=== PATIENT | female | born 1950 | race Caucasian/White ===

== ENCOUNTER 2018-01-16 10:00 | Observation (INO) | payer MEDICARE, OTHER ==
--- NOTE | 2018-01-16 10:07 | EDM.PDOC ---
ED HPI GENERAL MEDICAL PROBLEM - General Chief Complaint: Respiratory Problem Stated Complaint: TROUBLE BREATHING Time Seen by Provider: 01/16/18 10:06 Source of Information: Reports: Patient History Limitations: Reports: No Limitations - History of Present Illness INITIAL COMMENTS - FREE TEXT/NARRATIVE: HISTORY AND PHYSICAL: History of present illness: Patient is 67-year-old female who presents to the emergency room by EMS with complaints of shortness of breath. She states she was at work this morning and a coworker was cleaning and spraying some chemicals, which resulted in her becoming dyspneic. She is a 2 pack per day smoker and has occasionally become short of breath with exertion or certain exposures. Denies any fever, chills, chest pain, abdominal pain, nausea, vomiting, diarrhea or constipation. Review of systems: As per history of present illness and below otherwise all systems reviewed and negative. Past medical history: As per history of present illness and as reviewed below otherwise noncontributory. Surgical history: As per history of present illness and as reviewed below otherwise noncontributory. Social history: No reported history of drug or alcohol abuse. Family history: As per history of present illness and as reviewed below otherwise noncontributory. Physical exam: General: Well-developed and well-nourished 67-year-old female. Alert and oriented. Nontoxic appearing and in mild distress (labored breathing) HEENT: Atraumatic, normocephalic, pupils equal and reactive bilaterally, negative for conjunctival pallor or scleral icterus, mucous membranes moist, throat clear, neck supple, nontender, trachea midline. No drooling or trismus noted. No meningeal signs Lungs: Diminished throughout, breath sounds equal bilaterally, chest nontender. Labored breathing noted. Heart: S1S2, regular rate and rhythm without overt murmur Abdomen: Soft, nondistended, nontender. Negative for masses or hepatosplenomegaly. Negative for costovertebral tenderness. Pelvis: Stable nontender. Genitourinary: Deferred. Rectal: Deferred. Skin: Intact, warm, dry. No lesions or rashes noted. Extremities: Atraumatic, negative for cords or calf pain. Neurovascular unremarkable. Neuro: Awake, alert, oriented. Cranial nerves II through XII unremarkable. Cerebellum unremarkable. Motor and sensory unremarkable throughout. Exam nonfocal. Notes: Patient's sats 90% while on room air (does not have home oxygen). VSS otherwise. Patient says she feels improved after the DuoNeb. She does appear to have improved ease with respirations and better air exchange after the DuoNeb and Solu-Medrol. Her d-dimer is elevated and I will do a CTA of her chest. This was explained to the patient and she is agreeable. CT of the chest shows a single subsegmental left lower lobe PE. There is a moderate amount of pulmonary emphysema. I did offer her admission which she is hesitant. She is agreeable to staying overnight for observation. Dr Vega was consulted at this time. 1330: Dr Vega here to see patient. Patient will be admitted to Med/Surg Diagnostics: CBC, CMP, EKG, 2 view chest x-ray, ABG, D-Dimer Therapeutics: DuoNeb, Solu-Medrol Impression: Pulmonary Embolism Plan: Telemetry Observation Definitive disposition and diagnosis as appropriate pending reevaluation and review of above. - Related Data Allergies Allergy/AdvReac Type Severity Reaction Status Date / Time aloe vera Allergy Rash Verified 10/11/15 14:04 latex Allergy Rash Verified 10/11/15 14:04 Home Meds: Home Meds Potassium Chloride [Klor-Con] 10 mg PO BID 10/11/15 [History] Calc/D3/Mag/Zn/Alarm Security Or Surveillance Monitor/[place] [Calcium 600 MG Plus Vit D] 1 tab DAILY 01/16/18 [ History] Celecoxib [CeleBREX] 50 mg DAILY 01/16/18 [History] Past Medical History Other HEENT History: wears glasses Cardiovascular History: Reports: None Respiratory History: Reports: None Gastrointestinal History: Reports: None Genitourinary History: Reports: None HOSPITAL 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: Reports: None Musculoskeletal History: Reports: Arthritis, Fracture Other Musculoskeletal History: hx of fx left wrist Neurological History: Reports: None Psychiatric History: Reports: Depression Other Psychiatric History: in June Endocrine/Metabolic History: Reports: None Hematologic History: Reports: None Immunologic History: Reports: None Oncologic (Cancer) History: Reports: None Dermatologic History: Reports: Psoriasis Other Dermatologic History: left ankle - Past Surgical History GI Surgical History: Reports: Other (See Below) Female Surgical History: Reports: Other (See Below) Musculoskeletal Surgical History: Reports: Shoulder Surgery ED ROS GENERAL - Review of Systems Review Of Systems: ROS reveals no pertinent complaints other than HPI. ED EXAM, GENERAL - Physical Exam Exam: See Below (See dictation) Course - Vital Signs Last Recorded V/S: Last Vital Signs Temp 96.9 F 01/16/18 10:01 Pulse 93 01/16/18 10:01 Resp 28 H 01/16/18 10:01 BP 137/78 01/16/18 10:01 Pulse Ox 92 L 01/16/18 10:01 - Orders/Labs/Meds Orders: Active Orders 24 hr Category Date Time Status EKG Documentation Completion [RC] STAT Care 01/16/18 10:09 Active RT Aerosol Therapy [RC] ASDIRECTED Care 01/16/18 10:09 Active Ang Chest [CT] Stat Exams 01/16/18 11:15 Taken Sodium Chloride 0.9% [Saline Flush] Med 01/16/18 10:09 Active 10 ml FLUSH ASDIRECTED PRN Sodium Chloride 0.9% [Saline Flush] Med 01/16/18 10:09 Active 2.5 ml FLUSH ASDIRECTED PRN Saline Lock Insert [OM.PC] Stat Oth 01/16/18 10:09 Ordered Medication Orders Sodium Chloride (Saline Flush) 10 ml FLUSH ASDIRECTED PRN PRN Reason: Keep Vein Open Sodium Chloride (Saline Flush) 2.5 ml FLUSH ASDIRECTED PRN PRN Reason: Keep Vein Open Labs: Laboratory Tests 01/16/18 01/16/18 01/16/18 Range/Units 10:18 10:18 10:18 WBC 7.65 (4.0-11.0) K/uL RBC 4.81 (4.30-5.90) M/uL Hgb 15.6 (12.0-16.0) g/dL Hct 47.4 H (36.0-46.0) % MCV 98.5 H (80.0-98.0) fL MCH 32.4 H (27.0-32.0) pg MCHC 32.9 (31.0-37.0) g/dL RDW Std Deviation 49.5 (28.0-62.0) fl RDW Coeff of Xiao 14 (11.0-15.0) % Plt Count 221 (150-400) K/uL MPV 9.70 (7.40-12.00) fL Neut % (Auto) 75.3 (48.0-80.0) % Lymph % (Auto) 14.0 L (16.0-40.0) % [place] % (Auto) 8.2 (0.0-15.0) % Eos % (Auto) 2.1 (0.0-7.0) % Baso % (Auto) 0.4 (0.0-1.5) % Neut # (Auto) 5.8 H (1.4-5.7) K/uL Lymph # (Auto) 1.1 (0.6-2.4) K/uL [place] # (Auto) 0.6 (0.0-0.8) K/uL Eos # (Auto) 0.2 (0.0-0.7) K/uL Baso # (Auto) 0.0 (0.0-0.1) K/uL Nucleated RBC % 0.0 /100WBC Nucleated RBCs # 0 K/uL D-Dimer, Quantitative 1.08 H (0.0-0.52) mg/LFEU ABG pH (7.35-7.45) ABG pCO2 (35-45) mmHG ABG pO2 (75-100) mmHG ABG HCO3 (22-26) mEq/L ABG Total CO2 ABG Base Excess (-2.0-2.0) Sodium 140 (136-145) mmol/L Potassium 3.5 (3.5-5.1) mmol/L Chloride 104 (98-107) mmol/L Carbon Dioxide 26.3 (21.0-32.0) mmol/L BUN 15 (7.0-18.0) mg/dL Creatinine 0.7 (0.6-1.0) mg/dL Est Cr Clr Drug Dosing TNP Estimated GFR (MDRD) > 60.0 ml/min Glucose 110 H (74-106) mg/dL Calcium 9.2 (8.5-10.1) mg/dL Total Bilirubin 0.9 (0.2-1.0) mg/dL AST 20 (15-37) IU/L ALT 15 (14-63) IU/L Alkaline Phosphatase 149 H (46-116) U/L Troponin I (0.000-0.056) ng/mL B-Natriuretic Peptide (<100) PG/ML Total Protein 7.4 (6.4-8.2) g/dL Albumin 3.8 (3.4-5.0) g/dL Globulin 3.6 H (2.0-3.5) g/dL Albumin/Globulin Ratio 1.1 L (1.3-2.8) 01/16/18 01/16/18 01/16/18 Range/Units 10:18 10:18 10:54 WBC (4.0-11.0) K/uL RBC (4.30-5.90) M/uL Hgb (12.0-16.0) g/dL Hct (36.0-46.0) % MCV (80.0-98.0) fL MCH (27.0-32.0) pg MCHC (31.0-37.0) g/dL RDW Std Deviation (28.0-62.0) fl RDW Coeff of Xiao (11.0-15.0) % Plt Count (150-400) K/uL MPV (7.40-12.00) fL Neut % (Auto) (48.0-80.0) % Lymph % (Auto) (16.0-40.0) % [place] % (Auto) (0.0-15.0) % Eos % (Auto) (0.0-7.0) % Baso % (Auto) (0.0-1.5) % Neut # (Auto) (1.4-5.7) K/uL Lymph # (Auto) (0.6-2.4) K/uL [place] # (Auto) (0.0-0.8) K/uL Eos # (Auto) (0.0-0.7) K/uL Baso # (Auto) (0.0-0.1) K/uL Nucleated RBC % /100WBC Nucleated RBCs # K/uL D-Dimer, Quantitative (0.0-0.52) mg/LFEU ABG pH 7.424 (7.35-7.45) ABG pCO2 37 (35-45) mmHG ABG pO2 73 L (75-100) mmHG ABG HCO3 24 (22-26) mEq/L ABG Total CO2 20.7 ABG Base Excess -0.2 (-2.0-2.0) Sodium (136-145) mmol/L Potassium (3.5-5.1) mmol/L Chloride (98-107) mmol/L Carbon Dioxide (21.0-32.0) mmol/L BUN (7.0-18.0) mg/dL Creatinine (0.6-1.0) mg/dL Est Cr Clr Drug Dosing Estimated GFR (MDRD) ml/min Glucose (74-106) mg/dL Calcium (8.5-10.1) mg/dL Total Bilirubin (0.2-1.0) mg/dL AST (15-37) IU/L ALT (14-63) IU/L Alkaline Phosphatase (46-116) U/L Troponin I < 0.050 (0.000-0.056) ng/mL B-Natriuretic Peptide 194 H (<100) PG/ML Total Protein (6.4-8.2) g/dL Albumin (3.4-5.0) g/dL Globulin (2.0-3.5) g/dL Albumin/Globulin Ratio (1.3-2.8) Meds: Medications Generic Name Dose Route Start Last Admin Trade Name Freq PRN Reason Stop Dose Admin Sodium Chloride 10 ml 01/16/18 10:09 Saline Flush FLUSH ASDIRECTED PRN Keep Vein Open Sodium Chloride 2.5 ml 01/16/18 10:09 Saline Flush FLUSH ASDIRECTED PRN Keep Vein Open Discontinued Medications Generic Name Dose Route Start Last Admin Trade Name Becca PRN Reason Stop Dose Admin Albuterol/Ipratropium 3 ml 01/16/18 10:08 01/16/18 10:30 Duoneb 3.0-0.5 Mg/3 Ml NEB 01/16/18 10:09 3 ml ONETIME ONE Administration Albuterol/Ipratropium Confirm 01/16/18 10:08 01/16/18 10:20 Duoneb 3.0-0.5 Mg/3 Ml Administered 01/16/18 10:09 Not Given Dose 3 ml .ROUTE .STK-MED ONE Iopamidol 50 ml 01/16/18 12:28 01/16/18 12:31 Isovue Multipack-370 (76%) IVPUSH 01/16/18 12:29 50 ml ONETIME STA Administration Methylprednisolone Sodium Succinate 125 mg 01/16/18 10:18 01/16/18 10:30 Solu-Medrol IVPUSH 01/16/18 10:19 125 mg ONETIME ONE Administration Departure - Departure Time of Disposition: 13:49 Disposition: Refer to Observation Clinical Impression: Pulmonary emboli Qualifiers: Pulmonary embolism type: other Chronicity: acute Acute cor pulmonale presence: without acute cor pulmonale Qualified Code(s): I26.99 - Other pulmonary embolism without acute cor pulmonale - Discharge Information Forms: ED Department Discharge - My Orders Last 24 Hours: My Active Orders 01/16/18 10:09 EKG Documentation Completion [RC] STAT RT Aerosol Therapy [RC] ASDIRECTED Sodium Chloride 0.9% [Saline Flush] 10 ml FLUSH ASDIRECTED PRN Sodium Chloride 0.9% [Saline Flush] 2.5 ml FLUSH ASDIRECTED PRN Saline Lock Insert [OM.PC] Stat 01/16/18 11:15 Ang Chest [CT] Stat - Assessment/Plan Last 24 Hours: My Active Orders 01/16/18 10:09 EKG Documentation Completion [RC] STAT RT Aerosol Therapy [RC] ASDIRECTED Sodium Chloride 0.9% [Saline Flush] 10 ml FLUSH ASDIRECTED PRN Sodium Chloride 0.9% [Saline Flush] 2.5 ml FLUSH ASDIRECTED PRN Saline Lock Insert [OM.PC] Stat 01/16/18 11:15 Ang Chest [CT] Stat
[2018-01-16] MEDS ORDERED: Albuterol/Ipratropium 3.0-0.5 MG/3 ML Neb Soln NEB ONE (10:08)
[2018-01-16] MEDS ORDERED: Albuterol/Ipratropium 3.0-0.5 MG/3 ML Neb Soln ONE (10:08)
[2018-01-16] MEDS ORDERED: Sodium Chloride 0.9% 2.5 ML Syringe FLUSH PRN ×2 (10:09→14:14)
[2018-01-16] MEDS ORDERED: Sodium Chloride 0.9% 10 ML Syringe FLUSH PRN ×2 (10:09→14:14)
[2018-01-16] MEDS ORDERED: methylPREDNISolone Sodium Succinate 125 MG/2 ML SDV IVPUSH ONE (10:18)
--- NOTE | 2018-01-16 10:56 | CR ---
EXAMINATION: Two-view chest (PA and Lateral views). HISTORY: Dyspnea. FINDINGS: The trachea is midline. The cardiomediastinal silhouette is within normal limits. No pulmonary infilt rates, effusions or pneumothorax. Osseous structures appear unremarkable. IMPRESSION: No acute cardiopulmonary process.
[2018-01-16 11:02] LABS: CHLORIDE,CL 104 mmol/L (98-107); SODIUM,NA 140 mmol/L (136-145)
[2018-01-16] MEDS ORDERED: Iopamidol 755 MG/ML 500 ML Multipack Bottle IVPUSH STA (12:28)
--- NOTE | 2018-01-16 14:03 | CT ---
EXAMINATION: CTA chest HISTORY: Shortness of breath COMPARISON: 01/16/2018 TECHNIQUE: Axial CT images obtained through the chest following the administration of 50 mL of Isovue -370 in the left antecubital fossa. Coronal and sagittal reconstructions obtained. FINDINGS: The lungs are clear without focal consolidation. No pleural effusion or pneumothorax. Mild dependent atelectasis. A few very tiny subpleural nodules identified. The heart is normal in size wit hout a pericardial effusion. Thoracic aorta is normal in caliber. There is likely a single subsegment al filling defect within the anteromedial left lower lobe. Otherwise the pulmonary arteries are paten t. Central airways are clear. Moderate pulmonary emphysema. Visualized images of the upper abdomen appear normal. No suspicious osseous abnormalities identified. IMPRESSION: 1. Probable single subsegmental left lower lobe pulmonary embolism. 2. Otherwise no acute cardiopulmonary findings. 3. Moderate pulmonary emphysema.
[2018-01-16] MEDS ORDERED: Docusate Sodium 100 MG Cap PO PRN (14:14)
[2018-01-16] MEDS ORDERED: Ondansetron 4 MG/2 ML SDV IVPUSH PRN (14:14)
[2018-01-16] MEDS ORDERED: Morphine 2 MG/ML Syringe IVPUSH PRN (14:14)
[2018-01-16] MEDS ORDERED: Acetaminophen 325 MG Tab PO PRN (14:14)
[2018-01-16] MEDS ORDERED: Temazepam 15 MG Cap PO PRN (14:14)
[2018-01-16] MEDS ORDERED: Ondansetron 4 MG Tab.DIS PO PRN (14:14)
[2018-01-16] MEDS ORDERED: oxyCODONE 5 MG Tab PO PRN (14:14)
--- NOTE | 2018-01-16 14:32 | PCM.HP ---
H&P History of Present Illness - General Date of Service: 01/16/18 Admit Problem/Dx: Admission Diagnosis/Problem Admission Diagnosis/Problem Pulmonary embolism on left Source of Information: Patient, Old Records History Limitations: Reports: No Limitations - History of Present Illness Initial Comments - Free Text/Narative: The patient is an otherwise healthy 67-year-old lady who represented to the emergency department complaining of shortness of breath. Patient had been working and she had been exposed to some dry-cleaning chemicals which caused her to cough and become short of breath. This lasted for several minutes and the patient went outside to recover somewhat as you found that she was still short of breath after being outside. The patient had presented to the emergency department with this and had a CT scan with PE protocol and was noted to have pulmonary emboli. Prior to the event the patient had denied any health problems. She has no dizziness or lightheadedness. Patient had no diaphoresis or nausea or vomiting. She unfortunately still continues to smoke. The patient has been in her usual state of health and she is currently taking Celebrex for osteoarthritis. Onset of Symptoms: Reports: Sudden Duration of Symptoms: Reports: Hour(s): Location: Reports: Chest Quality: Reports: Dull Severity: Moderate Improves with: Reports: Rest Worsens with: Reports: Breathing Associated Symptoms: Reports: Chest Pain, Cough, Shortness of Breath. Denies: cough w sputum - Related Data Allergies/Adverse Reactions: Allergies Allergy/AdvReac Type Severity Reaction Status Date / Time aloe vera Allergy Rash Verified 10/11/15 14:04 latex Allergy Rash Verified 10/11/15 14:04 Home Medications: Home Meds Potassium Chloride [Klor-Con] 10 mg PO BID 10/11/15 [History] Calc/D3/Mag/Zn/Hebrew Professor/Talon/Milfay [Calcium 600 MG Plus Vit D] 1 tab DAILY 01/16/18 [ History] Celecoxib [CeleBREX] 50 mg DAILY 01/16/18 [History] Past Medical History Other HEENT History: wears glasses Cardiovascular History: Reports: None Respiratory History: Reports: None Gastrointestinal History: Reports: None Genitourinary History: Reports: None [employer] History: Reports: None Musculoskeletal History: Reports: Arthritis, Fracture Other Musculoskeletal History: hx of fx left wrist Neurological History: Reports: None Psychiatric History: Reports: Depression Other Psychiatric History: in June Endocrine/Metabolic History: Reports: None Hematologic History: Reports: None Immunologic History: Reports: None Oncologic (Cancer) History: Reports: None Dermatologic History: Reports: Psoriasis Other Dermatologic History: left ankle - Infectious Disease History Infectious Disease History: Reports: None - Past Surgical History GI Surgical History: Reports: Other (See Below) Female Surgical History: Reports: Other (See Below) Musculoskeletal Surgical History: Reports: Shoulder Surgery Social & Family History - Family History Family Medical History: Noncontributory - Tobacco Use Smoking Status *Q: Current Every Day Smoker Years of Tobacco use: 50 Packs/Tins Daily: 2 - Alcohol Use Days Per Week of Alcohol Use: 7 Number of Drinks Per Day: 4 Total Drinks Per Week: 28 - Recreational Drug Use Recreational Drug Use: No H&P Review of Systems - Review of Systems: Review Of Systems: See Below General: Reports: Weakness HEENT: Reports: No Symptoms Pulmonary: Reports: Shortness of Breath, Cough. Denies: Sputum, Hemoptysis Cardiovascular: Reports: Chest Pain. Denies: Lightheadedness Gastrointestinal: Reports: No Symptoms Genitourinary: Reports: No Symptoms Musculoskeletal: Reports: No Symptoms Skin: Reports: No Symptoms Psychiatric: Reports: No Symptoms Neurological: Reports: No Symptoms Hematologic/Lymphatic: Reports: No Symptoms Immunologic: Reports: No Symptoms Exam - Exam Exam: See Below - Vital Signs Vital Signs: Last Vital Signs Temp 36.1 C 01/16/18 10:01 Pulse 93 01/16/18 10:01 Resp 28 H 01/16/18 10:01 BP 137/78 01/16/18 10:01 Pulse Ox 92 L 01/16/18 10:01 Weight: 53.07 kg - Exam Quality Assessment: Supplemental Oxygen General: Alert, Oriented, Cooperative HEENT: Conjunctiva Clear, EACs Clear, EOMI, Mucosa Moist & [place], Nares Patent, Pupils Equal Neck: Supple, Trachea Midline, Full Range of Motion. No: Lymphadenopathy Lungs: Clear to Auscultation, Normal Respiratory Effort Cardiovascular: Regular Rate, Regular Rhythm, Normal S1, Normal S2 GI/Abdominal Exam: Normal Bowel Sounds, Soft, Non-Tender, No Organomegaly, No Distention. No: Guarding (Female) Exam: Deferred Rectal (Female) Exam: Deferred Back Exam: Normal Inspection, Full Range of Motion Extremities: Normal Inspection, Normal Range of Motion, No Pedal Edema Skin: Warm, Dry, Intact Neurological: Cranial Nerves Intact Neuro Extensive - Mental Status: Alert, Oriented x3 Neuro Extensive - Motor, Sensory, Reflexes: CN II-XII Intact Psychiatric: Alert, Normal Affect, Normal Mood - Patient Data Lab Results Last 24 hrs: Laboratory Results - last 24 hr 01/16/18 01/16/18 01/16/18 Range/Units 10:18 10:18 10:18 WBC 7.65 (4.0-11.0) K/uL RBC 4.81 (4.30-5.90) M/uL Hgb 15.6 (12.0-16.0) g/dL Hct 47.4 H (36.0-46.0) % MCV 98.5 H (80.0-98.0) fL MCH 32.4 H (27.0-32.0) pg MCHC 32.9 (31.0-37.0) g/dL RDW Std Deviation 49.5 (28.0-62.0) fl RDW Coeff of Xiao 14 (11.0-15.0) % Plt Count 221 (150-400) K/uL MPV 9.70 (7.40-12.00) fL Neut % (Auto) 75.3 (48.0-80.0) % Lymph % (Auto) 14.0 L (16.0-40.0) % [place] % (Auto) 8.2 (0.0-15.0) % Eos % (Auto) 2.1 (0.0-7.0) % Baso % (Auto) 0.4 (0.0-1.5) % Neut # (Auto) 5.8 H (1.4-5.7) K/uL Lymph # (Auto) 1.1 (0.6-2.4) K/uL [place] # (Auto) 0.6 (0.0-0.8) K/uL Eos # (Auto) 0.2 (0.0-0.7) K/uL Baso # (Auto) 0.0 (0.0-0.1) K/uL Nucleated RBC % 0.0 /100WBC Nucleated RBCs # 0 K/uL D-Dimer, Quantitative 1.08 H (0.0-0.52) mg/LFEU ABG pH (7.35-7.45) ABG pCO2 (35-45) mmHG ABG pO2 (75-100) mmHG ABG HCO3 (22-26) mEq/L ABG Total CO2 ABG Base Excess (-2.0-2.0) Sodium 140 (136-145) mmol/L Potassium 3.5 (3.5-5.1) mmol/L Chloride 104 (98-107) mmol/L Carbon Dioxide 26.3 (21.0-32.0) mmol/L BUN 15 (7.0-18.0) mg/dL Creatinine 0.7 (0.6-1.0) mg/dL Est Cr Clr Drug Dosing TNP Estimated GFR (MDRD) > 60.0 ml/min Glucose 110 H (74-106) mg/dL Calcium 9.2 (8.5-10.1) mg/dL Total Bilirubin 0.9 (0.2-1.0) mg/dL AST 20 (15-37) IU/L ALT 15 (14-63) IU/L Alkaline Phosphatase 149 H (46-116) U/L Troponin I (0.000-0.056) ng/mL B-Natriuretic Peptide (<100) PG/ML Total Protein 7.4 (6.4-8.2) g/dL Albumin 3.8 (3.4-5.0) g/dL Globulin 3.6 H (2.0-3.5) g/dL Albumin/Globulin Ratio 1.1 L (1.3-2.8) 01/16/18 01/16/18 01/16/18 Range/Units 10:18 10:18 10:54 WBC (4.0-11.0) K/uL RBC (4.30-5.90) M/uL Hgb (12.0-16.0) g/dL Hct (36.0-46.0) % MCV (80.0-98.0) fL MCH (27.0-32.0) pg MCHC (31.0-37.0) g/dL RDW Std Deviation (28.0-62.0) fl RDW Coeff of Xiao (11.0-15.0) % Plt Count (150-400) K/uL MPV (7.40-12.00) fL Neut % (Auto) (48.0-80.0) % Lymph % (Auto) (16.0-40.0) % [place] % (Auto) (0.0-15.0) % Eos % (Auto) (0.0-7.0) % Baso % (Auto) (0.0-1.5) % Neut # (Auto) (1.4-5.7) K/uL Lymph # (Auto) (0.6-2.4) K/uL [place] # (Auto) (0.0-0.8) K/uL Eos # (Auto) (0.0-0.7) K/uL Baso # (Auto) (0.0-0.1) K/uL Nucleated RBC % /100WBC Nucleated RBCs # K/uL D-Dimer, Quantitative (0.0-0.52) mg/LFEU ABG pH 7.424 (7.35-7.45) ABG pCO2 37 (35-45) mmHG ABG pO2 73 L (75-100) mmHG ABG HCO3 24 (22-26) mEq/L ABG Total CO2 20.7 ABG Base Excess -0.2 (-2.0-2.0) Sodium (136-145) mmol/L Potassium (3.5-5.1) mmol/L Chloride (98-107) mmol/L Carbon Dioxide (21.0-32.0) mmol/L BUN (7.0-18.0) mg/dL Creatinine (0.6-1.0) mg/dL Est Cr Clr Drug Dosing Estimated GFR (MDRD) ml/min Glucose (74-106) mg/dL Calcium (8.5-10.1) mg/dL Total Bilirubin (0.2-1.0) mg/dL AST (15-37) IU/L ALT (14-63) IU/L Alkaline Phosphatase (46-116) U/L Troponin I < 0.050 (0.000-0.056) ng/mL B-Natriuretic Peptide 194 H (<100) PG/ML Total Protein (6.4-8.2) g/dL Albumin (3.4-5.0) g/dL Globulin (2.0-3.5) g/dL Albumin/Globulin Ratio (1.3-2.8) Result Diagrams: 01/16/18 10:18 01/16/18 10:18 - Problem List (1) Pulmonary emboli SNOMED Code(s): 90522425 ICD Code: I26.99 - OTHER PULMONARY EMBOLISM WITHOUT ACUTE COR PULMONALE Status: Acute Priority: High Current Visit: Yes Qualifiers: Pulmonary embolism type: other Chronicity: acute Acute cor pulmonale presence: without acute cor pulmonale Qualified Code(s): I26.99 - Other pulmonary embolism without acute cor pulmonale (2) Exposure to chemical inhalation SNOMED Code(s): 244656227 ICD Code: Z77.098 - CONTACT W AND EXPSR TO OTH HAZARD, CHIEFLY NONMED, CHEMICALS Status: Acute Priority: High Current Visit: Yes (3) Dyspnea and respiratory abnormalities SNOMED Code(s): 752595920 ICD Code: R06.00 - DYSPNEA, UNSPECIFIED; R06.89 - OTHER ABNORMALITIES OF BREATHING Status: Acute Priority: High Current Visit: Yes (4) Osteoporosis SNOMED Code(s): 43332044 ICD Code: M81.0 - AGE-RELATED OSTEOPOROSIS W/O CURRENT PATHOLOGICAL FRACTURE Status: Chronic Priority: Low Current Visit: Yes Qualifiers: Osteoporosis type: age-related Encounter type: initial encounter (5) Pulmonary emphysema determined by X-ray SNOMED Code(s): 84991595, 317758932 ICD Code: J43.9 - EMPHYSEMA, UNSPECIFIED Status: Chronic Priority: High Current Visit: Yes (6) Tobacco abuse SNOMED Code(s): 980173458 ICD Code: Z72.0 - TOBACCO USE Status: Chronic Priority: High Current Visit: Yes Problem List Initiated/Reviewed/Updated: Yes Orders Last 24hrs: Active Orders 24 hr Category Date Time Status Patient Status [ADT] Routine ADT 01/16/18 14:14 Active Ambulate [RC] ASDIRECTED Care 01/16/18 14:14 Active Ambulate [RC] PER UNIT ROUTINE Care 01/16/18 14:16 Active Cardiac Monitoring [RC] . DIRECTED Care 01/16/18 14:01 Active Communication, Vaccine [RC] PER UNIT ROUTINE Care 01/16/18 14:19 Active EKG Documentation Completion [RC] STAT Care 01/16/18 10:09 Active Oxygen Therapy [RC] PRN Care 01/16/18 14:14 Active RT Aerosol Therapy [RC] ASDIRECTED Care 01/16/18 10:09 Active Up ad Leah [RC] ASDIRECTED Care 01/16/18 14:14 Active VTE/DVT Education [RC] PER UNIT ROUTINE Care 01/16/18 14:14 Active Vaccines to be Administered [RC] PER UNIT ROUTINE Care 01/16/18 14:19 Active Vital Signs [RC] Q4H Care 01/16/18 14:14 Active Heart Healthy Diet [DIET] Diet 01/16/18 Dinner Active Echo 2D wo Cont [US] Stat Exams 01/16/18 14:20 Ordered BASIC METABOLIC PANEL,BMP [CHEM] AM Lab 01/17/18 05:11 Ordered CBC WITH AUTO DIFF [HEME] AM Lab 01/17/18 05:11 Ordered Acetaminophen [Tylenol] Med 01/16/18 14:14 Ordered 650 mg PO Q4H PRN Docusate Sodium [Colace] Med 01/16/18 14:14 Ordered 100 mg PO BID PRN Enoxaparin [Lovenox] Med 01/16/18 14:30 Ordered 60 mg SUBCUT Q12H Morphine Med 01/16/18 14:14 Ordered 2 mg IVPUSH Q2H PRN Ondansetron [Zofran ODT] Med 01/16/18 14:14 Ordered 4 mg PO Q6H PRN Ondansetron [Zofran] Med 01/16/18 14:14 Ordered 4 mg IVPUSH Q8H PRN Sodium Chloride 0.9% [Saline Flush] Med 01/16/18 10:09 Active 10 ml FLUSH ASDIRECTED PRN Sodium Chloride 0.9% [Saline Flush] Med 01/16/18 14:14 Ordered 10 ml FLUSH ASDIRECTED PRN Sodium Chloride 0.9% [Saline Flush] Med 01/16/18 10:09 Active 2.5 ml FLUSH ASDIRECTED PRN Sodium Chloride 0.9% [Saline Flush] Med 01/16/18 14:14 Ordered 2.5 ml FLUSH ASDIRECTED PRN Temazepam [Restoril] Med 01/16/18 14:14 Ordered 15 mg PO BEDTIME PRN oxyCODONE Med 01/16/18 14:14 Ordered 5 mg PO Q4H PRN GM Immunization Reflex [OM.PC] Click To Edit Oth 01/16/18 14:14 Ordered Saline Lock Insert [OM.PC] Routine Oth 01/16/18 14:14 Ordered Saline Lock Insert [OM.PC] Stat Oth 01/16/18 10:09 Ordered Resuscitation Status Routine Resus Stat 01/16/18 14:14 Ordered Medication Orders Acetaminophen (Tylenol) 650 mg PO Q4H PRN PRN Reason: Pain (Mild 1-3)/fever Docusate Sodium (Colace) 100 mg PO BID PRN PRN Reason: Constipation Enoxaparin Sodium (Lovenox) 60 mg SUBCUT Q12H FILIBERTO Morphine Sulfate (Morphine) 2 mg IVPUSH Q2H PRN PRN Reason: Pain (severe 7-10) Stop: 01/17/18 14:17 Ondansetron HCl (Zofran Odt) 4 mg PO Q6H PRN PRN Reason: nausea, able to take PO Ondansetron HCl (Zofran) 4 mg IVPUSH Q8H PRN PRN Reason: Nausea/Vomiting Oxycodone HCl (Oxycodone) 5 mg PO Q4H PRN PRN Reason: Pain (moderate 4-6) Sodium Chloride (Saline Flush) 10 ml FLUSH ASDIRECTED PRN PRN Reason: Keep Vein Open Sodium Chloride (Saline Flush) 2.5 ml FLUSH ASDIRECTED PRN PRN Reason: Keep Vein Open Sodium Chloride (Saline Flush) 10 ml FLUSH ASDIRECTED PRN PRN Reason: Keep Vein Open Sodium Chloride (Saline Flush) 2.5 ml FLUSH ASDIRECTED PRN PRN Reason: Keep Vein Open Temazepam (Restoril) 15 mg PO BEDTIME PRN PRN Reason: Sleep Assessment/Plan Comment:: The patient is a 67-year-old lady who had presented to the emergency department initially because of shortness of breath. This is likely secondary to her possible chemical exposure. I think because of the nature, size and location of the pulmonary emboli I believe that this is an incidental finding. Regardless, the patient will be treated as an acute pulmonary emboli and she's been started on treatment dose of Lovenox. The patient will be kept on 60 mg of Lovenox subcutaneous twice a day. I had a long discussion with the patient regarding the use of Coumadin versus novel oral anticoagulants. Because Xarelto has been studied I recommend this for the patient. The patient will be transitioned to this starting tomorrow. I think the patient should be appropriate for discharge tomorrow after 2-D echocardiogram to check for right ventricular filling pressures and signs of heart failure. The patient is a smoker and therefore this is a contributing factor to her hypercoagulable state. I would recommend that the patient have a hypercoagulable workup as an outpatient. The patient also has been strongly counseled with regards to smoking cessation. She has been reported negative nicotine patch. Further, the patient should have a PFT after discharge in order to ascertain the degree of pulmonary emphysema. The patient should be appropriate for discharge tomorrow.
[2018-01-16] MEDS: Nicotine 7 MG/24 Hr Patch TRDERM SCH (16:11)
[2018-01-16] MEDS: Enoxaparin 60 MG/0.6 ML Syringe SUBCUT SCH (16:12)
[2018-01-17] MEDS: Enoxaparin 60 MG/0.6 ML Syringe SUBCUT SCH (02:13)
[2018-01-17] MEDS: Nicotine 7 MG/24 Hr Patch TRDERM SCH (08:14)
[2018-01-17 09:02] VITALS: BP 116/70
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
--- NOTE | 2018-01-18 13:21 | ECHO ---
EXAM DATE: 01/16/18 PATIENT'S AGE: 67 The echocardiogram report can be seen in this patient's EMR (Electronic Medical Record) in the Reports section. The report has also been scanned into PACs. STEPH
== END 2018-01-17 10:10 | disposition home or self-care (01) ==
LOC: MW.ED 10:00 → MW.MS 14:14 → MW.ED 15:07 → UNDODISOB 01-17 10:10
PROVIDERS: ADMIT Internal Medicine; ATTEND Internal Medicine
DX: I26.99 Other pulmonary embolism without acute cor pulmonale (principal); R06.00 Dyspnea, unspecified; J43.9 Emphysema, unspecified; F17.210 Nicotine dependence, cigarettes, uncomplicated; Z77.098 Contact with and (suspected) exposure to other hazardous, chiefly nonmedicinal, chemicals
CPT/HCPCS: 36415; 36600; 71046; 71275; 80053; 82803; 83880; 84484; 85025; 85379; 93005; 93306; 94640; 96372; 96374; 99285; A9270; G0378; J1650; J2930; Q9967; J7620-GY

== ENCOUNTER 2018-12-23 18:56 | Emergency (ER) | payer MEDICARE, OTHER ==
[2018-12-23] MEDS ORDERED: Sodium Chloride 0.9% 1,000 ML IV ONE (19:08)
--- NOTE | 2018-12-23 19:09 | EDM.PDOC ---
ED HPI GENERAL MEDICAL PROBLEM - General Chief Complaint: Cardiovascular Problem Stated Complaint: HEART RATE IS GOING UP Time Seen by Provider: 12/23/18 19:08 Source of Information: Reports: Patient - History of Present Illness INITIAL COMMENTS - FREE TEXT/NARRATIVE: HISTORY AND PHYSICAL: History of present illness: [Patient presents by private vehicle with palpitation as above, initial EKG did show an atrial flutter however this resolved spontaneously she does have history of atrial flutter usually lasting 5-10 minutes this episode persisted for a couple of hours however resolved on its own I had ordered Cardizem, on arrival however with fluids and as reviewed all resolved and she is normal sinus rhythm with Her for extended stay in the ER and have offered observation admission and telemetry however she refused No fever nausea vomiting chills sweats no chest pain shortness breath headache dizziness palpitation no bowel or urine symptoms Review of systems: As per history of present illness and below otherwise all systems reviewed and negative. Past medical history: As per history of present illness and as reviewed below otherwise noncontributory. Surgical history: As per history of present illness and as reviewed below otherwise noncontributory. Social history: No reported history of drug or alcohol abuse. Family history: As per history of present illness and as reviewed below otherwise noncontributory. Physical exam: HEENT: Atraumatic, normocephalic, pupils reactive, negative for conjunctival pallor or scleral icterus, mucous membranes moist, throat clear, neck supple, nontender, trachea midline. Lungs: Clear to auscultation, breath sounds equal bilaterally, chest nontender. Heart: S1S2, regular, negative for clicks, rubs, or JVD. Abdomen: Soft, nondistended, nontender. Negative for masses or hepatosplenomegaly. Negative for costovertebral tenderness. Pelvis: Stable nontender. Genitourinary: Deferred. Rectal: Deferred. Extremities: Atraumatic, negative for cords or calf pain. Neurovascular unremarkable. Neuro: Awake, alert, oriented. Cranial nerves II through XII unremarkable. Cerebellum unremarkable. Motor and sensory unremarkable throughout. Exam nonfocal. Diagnostics: [CBC CMP UA troponin INR EKG-repeat EKG Chest 1 view ] Therapeutics: normalsaline Cardizem 20 mg IV-not provided Patient offered observation admission and refused ] Impression: [UTI Atrial flutter resolved Chronic history of baseline] Definitive disposition and diagnosis as appropriate pending reevaluation and review of above. - Related Data Allergies Allergy/AdvReac Type Severity Reaction Status Date / Time aloe vera Allergy Rash Verified 10/11/15 14:04 latex Allergy Rash Verified 10/11/15 14:04 Home Meds: Home Meds Potassium Chloride [Klor-Con] 10 mg PO BID 10/11/15 [History] Calc/D3/Mag/Zn/Position Classification Specialist/[place] [Calcium 600 MG Plus Vit D] 1 tab DAILY 01/16/18 [ History] Celecoxib [CeleBREX] 50 mg DAILY 01/16/18 [History] Cholecalciferol (Vitamin D3) [Vitamin D3] 12/23/18 [History] Magnesium 250 mg PO DAILY 12/23/18 [History] Rivaroxaban [Xarelto] 20 mg PO DAILY 12/23/18 [History] Tiotropium Br/Olodaterol HCl [Stiolto Respimat Inhal Ecru] 2 inh INH DAILY 06/11 [History] traMADol [Ultram] 50 mg PO DAILY 12/23/18 [History] Past Medical History HEENT History: Reports: Cataract Other HEENT History: wears glasses Cardiovascular History: Reports: None, Blood Clots/VTE/DVT Respiratory History: Reports: None, PE Gastrointestinal History: Reports: None Genitourinary History: Reports: None 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 Other BUILDING MAINTENANCE TECHNICIAN History: partial hysterectomy Musculoskeletal History: Reports: Arthritis, Fracture Other Musculoskeletal History: hx of fx left wrist Neurological History: Reports: None Psychiatric History: Reports: Depression Other Psychiatric History: in June Endocrine/Metabolic History: Reports: None Hematologic History: Reports: None Immunologic History: Reports: None Oncologic (Cancer) History: Reports: None Dermatologic History: Reports: Psoriasis Other Dermatologic History: left ankle - Infectious Disease History Infectious Disease History: Reports: Chicken Pox - Past Surgical History Head Surgeries/Procedures: Reports: None GI Surgical History: Reports: Other (See Below) Female Surgical History: Reports: Hysterectomy, Other (See Below) Other Female Surgeries/Procedures: bladder surgery Musculoskeletal Surgical History: Reports: Shoulder Surgery Social & Family History - Family History Family Medical History: Noncontributory - Tobacco Use Smoking Status *Q: Heavy Tobacco Smoker Years of Tobacco use: 40 Packs/Tins Daily: 2 - Caffeine Use Caffeine Use: Reports: Soda - Recreational Drug Use Recreational Drug Use: No ED ROS GENERAL - Review of Systems Review Of Systems: See Below ED EXAM, GENERAL - Physical Exam Exam: See Below Course - Vital Signs Last Recorded V/S: Last Vital Signs Temp 97.2 F 12/23/18 19:00 Pulse 66 12/23/18 20:10 Resp 19 12/23/18 20:10 BP 122/65 12/23/18 20:10 Pulse Ox 96 12/23/18 20:10 - Orders/Labs/Meds Orders: Active Orders 24 hr Category Date Time Status EKG Documentation Completion [RC] STAT Care 12/23/18 19:08 Active EKG Documentation Completion [RC] STAT Care 12/23/18 20:14 Active CULTURE URINE [RM] Routine Lab 12/23/18 19:40 Received Labs: Laboratory Tests 12/23/18 12/23/18 12/23/18 Range/Units 19:10 19:10 19:10 WBC 7.69 (4.0-11.0) K/uL RBC 3.82 L (4.30-5.90) M/uL Hgb 12.0 (12.0-16.0) g/dL Hct 37.4 (36.0-46.0) % MCV 97.9 (80.0-98.0) fL MCH 31.4 (27.0-32.0) pg MCHC 32.1 (31.0-37.0) g/dL RDW Std Deviation 53.6 (28.0-62.0) fl RDW Coeff of Xiao 15 (11.0-15.0) % Plt Count 427 H (150-400) K/uL MPV 8.90 (7.40-12.00) fL Neut % (Auto) 76.8 (48.0-80.0) % Lymph % (Auto) 15.0 L (16.0-40.0) % [place] % (Auto) 6.1 (0.0-15.0) % Eos % (Auto) 1.7 (0.0-7.0) % Baso % (Auto) 0.4 (0.0-1.5) % Neut # (Auto) 5.9 H (1.4-5.7) K/uL Lymph # (Auto) 1.2 (0.6-2.4) K/uL [place] # (Auto) 0.5 (0.0-0.8) K/uL Eos # (Auto) 0.1 (0.0-0.7) K/uL Baso # (Auto) 0.0 (0.0-0.1) K/uL Nucleated RBC % 0.0 /100WBC Nucleated RBCs # 0 K/uL INR 1.00 Sodium 141 (136-145) mmol/L Potassium 3.6 (3.5-5.1) mmol/L Chloride 103 (98-107) mmol/L Carbon Dioxide 21.4 (21.0-32.0) mmol/L BUN 7 (7.0-18.0) mg/dL Creatinine 0.5 L (0.6-1.0) mg/dL Est Cr Clr Drug Dosing 86.36 mL/min Estimated GFR (MDRD) > 60.0 ml/min Glucose 103 (74-106) mg/dL Calcium 9.0 (8.5-10.1) mg/dL Total Bilirubin 0.3 (0.2-1.0) mg/dL AST 9 L (15-37) IU/L ALT 12 L (14-63) IU/L Alkaline Phosphatase 123 H (46-116) U/L Troponin I < 0.050 (0.000-0.056) ng/mL Total Protein 6.7 (6.4-8.2) g/dL Albumin 3.1 L (3.4-5.0) g/dL Globulin 3.6 (2.6-4.0) g/dL Albumin/Globulin Ratio 0.9 (0.9-1.6) Urine Color Urine Appearance Urine pH (5.0-8.0) Ur Specific [place] (1.001-1.035) Urine Protein (NEGATIVE) mg/dL Urine Glucose (UA) (NEGATIVE) mg/dL Urine Ketones (NEGATIVE) mg/dL Urine Occult Blood (NEGATIVE) Urine Nitrite (NEGATIVE) Urine Bilirubin (NEGATIVE) Urine Urobilinogen (<2.0) EU/dL Ur Leukocyte Esterase (NEGATIVE) Urine RBC (0-2/HPF) Urine WBC (0-5/HPF) Ur Epithelial Cells (NONE-FEW) Urine Bacteria (NEGATIVE) 12/23/18 Range/Units 19:40 WBC (4.0-11.0) K/uL RBC (4.30-5.90) M/uL Hgb (12.0-16.0) g/dL Hct (36.0-46.0) % MCV (80.0-98.0) fL MCH (27.0-32.0) pg MCHC (31.0-37.0) g/dL RDW Std Deviation (28.0-62.0) fl RDW Coeff of Xiao (11.0-15.0) % Plt Count (150-400) K/uL MPV (7.40-12.00) fL Neut % (Auto) (48.0-80.0) % Lymph % (Auto) (16.0-40.0) % [place] % (Auto) (0.0-15.0) % Eos % (Auto) (0.0-7.0) % Baso % (Auto) (0.0-1.5) % Neut # (Auto) (1.4-5.7) K/uL Lymph # (Auto) (0.6-2.4) K/uL [place] # (Auto) (0.0-0.8) K/uL Eos # (Auto) (0.0-0.7) K/uL Baso # (Auto) (0.0-0.1) K/uL Nucleated RBC % /100WBC Nucleated RBCs # K/uL INR Sodium (136-145) mmol/L Potassium (3.5-5.1) mmol/L Chloride (98-107) mmol/L Carbon Dioxide (21.0-32.0) mmol/L BUN (7.0-18.0) mg/dL Creatinine (0.6-1.0) mg/dL Est Cr Clr Drug Dosing mL/min Estimated GFR (MDRD) ml/min Glucose (74-106) mg/dL Calcium (8.5-10.1) mg/dL Total Bilirubin (0.2-1.0) mg/dL AST (15-37) IU/L ALT (14-63) IU/L Alkaline Phosphatase (46-116) U/L Troponin I (0.000-0.056) ng/mL Total Protein (6.4-8.2) g/dL Albumin (3.4-5.0) g/dL Globulin (2.6-4.0) g/dL Albumin/Globulin Ratio (0.9-1.6) Urine Color YELLOW Urine Appearance CLEAR Urine pH 6.0 (5.0-8.0) Ur Specific [place] <= 1.005 (1.001-1.035) Urine Protein NEGATIVE (NEGATIVE) mg/dL Urine Glucose (UA) NEGATIVE (NEGATIVE) mg/dL Urine Ketones NEGATIVE (NEGATIVE) mg/dL Urine Occult Blood NEGATIVE (NEGATIVE) Urine Nitrite NEGATIVE (NEGATIVE) Urine Bilirubin NEGATIVE (NEGATIVE) Urine Urobilinogen 0.2 (<2.0) EU/dL Ur Leukocyte Esterase TRACE H (NEGATIVE) Urine RBC 0-1 (0-2/HPF) Urine WBC 1-2 (0-5/HPF) Ur Epithelial Cells OCCASIONAL (NONE-FEW) Urine Bacteria RARE (NEGATIVE) Meds: Medications Discontinued Medications Generic Name Dose Route Start Last Admin Trade Name Freq PRN Reason Stop Dose Admin Diltiazem HCl 20 mg 12/23/18 19:14 12/23/18 19:51 Diltiazem IVPUSH 12/23/18 19:15 Not Given ONETIME ONE Sodium Chloride 1,000 mls @ 999 mls/hr 12/23/18 19:08 12/23/18 19:50 Normal Saline IV 12/23/18 20:08 999 mls/hr STAT ONE Administration Departure - Departure Time of Disposition: 20:52 Disposition: Home, Self-Care 01 Condition: Good Clinical Impression: UTI (urinary tract infection) Referrals: Thuy Portillo MD [Primary Care Provider] - Forms: ED Department Discharge Additional Instructions: Medication as prescribed Return if symptoms persist or worsen or if new concerning symptoms develop Follow-up with primary care in 2 weeks sooner as needed The following information is given to patients seen in the emergency department who are being discharged to home. This information is to outline your options for follow-up care. We provide all patients seen in our emergency department with a follow-up referral. The need for follow-up, as well as the timing and circumstances, are variable depending upon the specifics of your emergency department visit. If you don't have a primary care physician on staff, we will provide you with a referral. We always advise you to contact your personal physician following an emergency department visit to inform them of the circumstance of the visit and for follow-up with them and/or the need for any referrals to a consulting specialist. The emergency department will also refer you to a specialist when appropriate. This referral assures that you have the opportunity for follow-up care with a specialist. All of these measure are taken in an effort to provide you with optimal care, which includes your follow-up. Under all circumstances we always encourage you to contact your private physician who remains a resource for coordinating your care. When calling for follow-up care, please make the office aware that this follow-up is from your recent emergency room visit. If for any reason you are refused follow-up, please contact the [facility] emergency department at and asked to speak to the emergency department charge nurse. - My Orders Last 24 Hours: My Active Orders 12/23/18 19:08 EKG Documentation Completion [RC] STAT 12/23/18 19:40 CULTURE URINE [RM] Routine 12/23/18 20:14 EKG Documentation Completion [RC] STAT - Assessment/Plan Last 24 Hours: My Active Orders 12/23/18 19:08 EKG Documentation Completion [RC] STAT 12/23/18 19:40 CULTURE URINE [RM] Routine 12/23/18 20:14 EKG Documentation Completion [RC] STAT
[2018-12-23] MEDS ORDERED: Diltiazem 25 MG/5 ML SDV IVPUSH ONE (19:14)
[2018-12-23 20:18] LABS: BLOOD UREA NITROGEN,BUN 7 mg/dL (7.0-18.0); CARBON DIOXIDE,CO2 21.4 mmol/L (21.0-32.0); CHLORIDE,CL 103 mmol/L (98-107); GLUCOSE RANDOM 103 mg/dL (74-106); POTASSIUM,K 3.6 mmol/L (3.5-5.1); SODIUM,NA 141 mmol/L (136-145)
--- NOTE | 2018-12-23 20:23 | CR ---
Indication: Palpitations. High blood pressure. Technique: A single AP portable view of the chest was obtained. Comparison: January 16, 2018. Findings: The heart is normal in size. The lungs are clear. No infiltrate, pleural effusion, or pneumothorax is identified. Impression: No acute cardiopulmonary process. Dictated by Sravani Wang MD @ Dec 23 2018 8:17PM Signed by Dr. Sravani Wang @ Dec 23 2018 8:20PM
[2018-12-24 00:50] VITALS: BP 117/66
== END 2018-12-23 21:02 | disposition home or self-care (01) ==
LOC: MW.ED 18:56
DX: N39.0 Urinary tract infection, site not specified (principal); F32.9 Major depressive disorder, single episode, unspecified; F17.210 Nicotine dependence, cigarettes, uncomplicated; Z91.040 Latex allergy status; Z91.048 Other nonmedicinal substance allergy status; Z79.899 Other long term (current) drug therapy; Z86.718 Personal history of other venous thrombosis and embolism
CPT/HCPCS: 36415; 71045; 80053; 81001; 84484; 85025; 85610; 87086; 93005; 96360; 99285; J7040; 87088; 87186; 99284

== ENCOUNTER 2019-08-29 20:08 | Emergency (ER) | payer MEDICARE, OTHER ==
[2019-08-29] MEDS ORDERED: Sodium Chloride 0.9% 2.5 ML Syringe FLUSH PRN (20:32)
[2019-08-29] MEDS ORDERED: Sodium Chloride 0.9% 10 ML Syringe FLUSH PRN (20:32)
[2019-08-29] MEDS ORDERED: Sodium Chloride 0.9% 1,000 ML IV ONE (20:32)
[2019-08-29] MEDS ORDERED: Diltiazem 25 MG/5 ML SDV IVPUSH ONE (20:34)
--- NOTE | 2019-08-29 20:40 | EDM.PDOC ---
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 She states that the symptoms came on out of the blue, she was not doing anything particular when they started. She says this is happened from time to time in the past, usually the episodes last about 10 minutes and then resolve spontaneously. Denies any previous diagnosis of A. fib. Was seen back in December of last year for similar complaint, based on the records it sounds like her symptoms abated and she was in a normal sinus rhythm by the time she arrived here the ED. She denies chest pain, shortness of breath, fever, cough, or other URI symptoms. No recent known exposure to anyone COVID-19. Denies syncope. Endorses feeling a little bit lightheaded. Denies previous cardiac work-up. Does not recall ever getting a stress test or cardiac echo. 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 States that she takes potassium supplements to help with her intermittent palpitations.] Review of systems: As per history of present illness and below otherwise all systems reviewed and negative. Past medical history: As per history of present illness and as reviewed below otherwise noncontributory. Surgical history: As per history of present illness and as reviewed below otherwise noncontributory. Social history: No reported history of drug or alcohol abuse. Family history: As per history of present illness and as reviewed below otherwise noncontributory. Physical exam: HEENT: Atraumatic, normocephalic, pupils reactive, negative for conjunctival pallor or scleral icterus, mucous membranes moist, throat clear, neck supple, nontender, trachea midline. Lungs: Clear to auscultation, breath sounds equal bilaterally, chest nontender. Heart: Tachycardic, irregularly irregular rhythm. No JVD. Abdomen: Soft, nondistended, nontender. Negative for masses or hepatosplenomegaly. Negative for costovertebral tenderness. Pelvis: Stable nontender. Genitourinary: Deferred. Rectal: Deferred. Extremities: Atraumatic, negative for cords or calf pain. Neurovascular unremarkable. Neuro: Awake, alert, oriented. Motor and sensory grossly intact throughout. Exam nonfocal. Diagnostics: [] Therapeutics: [] Impression: [] Plan: [] Definitive disposition and diagnosis as appropriate pending reevaluation and review of above. - Related Data Allergies Allergy/AdvReac Type Severity Reaction Status Date / Time aloe vera Allergy Rash Verified 08/29/19 20:13 latex Allergy Rash Verified 08/29/19 20:13 Home Meds: Home Meds Potassium Chloride [Klor-Con] 10 mg PO BID 10/11/15 [History] Calc/D3/Mag/Zn/[place] [Calcium 600 MG Plus Vit D] 1 tab DAILY 01/16/18 [History] Cholecalciferol (Vitamin D3) [Vitamin D3] 1 tab PO DAILY 12/23/18 [History] Magnesium 250 mg PO DAILY 12/23/18 [History] Rivaroxaban [Xarelto] 20 mg PO DAILY 12/23/18 [History] Tiotropium Br/Olodaterol HCl [Stiolto Respimat Inhal [place]] 2 inh INH DAILY 06/11 [History] Past Medical History HEENT History: Reports: Cataract Other HEENT History: wears glasses Cardiovascular History: Reports: Blood Clots/VTE/DVT, Other (See Below) Other Cardiovascular History: Palpitations Respiratory History: Reports: COPD, PE Gastrointestinal History: Reports: None Genitourinary History: Reports: None RAT CULTURIST History: Reports: None Other RAT CULTURIST History: partial hysterectomy Musculoskeletal History: Reports: Arthritis, Fracture Other Musculoskeletal History: hx of fx left wrist Neurological History: Reports: None Psychiatric History: Reports: Depression Other Psychiatric History: in June Endocrine/Metabolic History: Reports: None Insulin Pump Model and Garbage Truck Helper: None Hematologic History: Reports: None Immunologic History: Reports: None Oncologic (Cancer) History: Reports: None Dermatologic History: Reports: Psoriasis Other Dermatologic History: left ankle - Infectious Disease History Infectious Disease History: Reports: None - Past Surgical History Head Surgeries/Procedures: Reports: None GI Surgical History: Reports: None, Hernia, Inguinal Female Surgical History: Reports: Hysterectomy, Other (See Below) Other Female Surgeries/Procedures: Bladder Surgery Musculoskeletal Surgical History: Reports: Shoulder Surgery Social & Family History - Family History Family Medical History: Noncontributory - Tobacco Use Smoking Status *Q: Current Every Day Smoker Years of Tobacco use: 40 Packs/Tins Daily: 2 - Caffeine Use Caffeine Use: Reports: Soda - Recreational Drug Use Recreational Drug Use: No ED ROS GENERAL - Review of Systems Review Of Systems: Comprehensive ROS is negative, except as noted in HPI. ED EXAM, GENERAL - Physical Exam Exam: See Below (see H and P) ED CARDIOLOGY PROCEDURES - Additional/Other Procedure(s) Other (Free Text) Procedure(s): Initial EK08/29/19 Time: 2011 Rate 112 Rhythm: Afib St-T: no ischemic changes intervals: within normal limits Interp: Afib with RVR. EKG INTERPRETATION EKG Date: 08/29/19 Time: 21:32 Rhythm: NSR Rate (Beats/Min): 76 [place]: Normal P-Wave: Present QRS: Normal ST-T: Normal QT: Normal Comparison: Change From Previous EKG (converted to sinus rhythm) Course - Vital Signs Text/Narrative:: Patient received dose of IV Cardizem, this resulted in conversion of her A. fib to a sinus rhythm. The remainder of her work-up was largely unremarkable. Mild hypokalemia, otherwise stable electrolytes. Her potassium was replaced orally. She is chest pain-free, no shortness of breath, states that her palpitations have resolved as well. Asymptomatic at the time of discharge. She has follow-up with PCP. I informed her she should keep her future appointment and discuss possible cardiology testing including echocardiogram and possible further work-up by cardiology and EP underground mine machinery mechanic if her symptoms become more persistent or severe. She is anticoagulated, takes Xarelto for her history of PE, at this time I do not believe she requires a prescription for rate control at home, the symptoms appear to be somewhat sporadic, and I will defer any future medication regimen adjustments or new medications to her PCP and outpatient work-up. Patient is comfortable with plan, otherwise well- appearing and nontoxic at the time of discharge. Return precautions provided. Last Recorded V/S: Last Vital Signs Temp 36.1 C 08/29/19 21:50 Pulse 83 08/29/19 21:50 Resp 18 08/29/19 21:50 BP 111/73 08/29/19 21:50 Pulse Ox 98 08/29/19 21:50 - Orders/Labs/Meds Orders: Active Orders 24 hr Category Date Time Status Cardiac Monitoring [RC] . DIRECTED Care 08/29/19 20:32 Active EKG 12 Lead [EKG Documentation Completion] [RC] STAT Care 08/29/19 20:18 Active EKG 12 Lead [EKG Documentation Completion] [RC] STAT Care 08/29/19 21:30 Active Oxygen Therapy [RC] ASDIRECTED Care 08/29/19 20:32 Active Pulse Oximetry [RC] ASDIRECTED Care 08/29/19 20:32 Active Sodium Chloride 0.9% [Saline Flush] Med 08/29/19 20:32 Active 10 ml FLUSH ASDIRECTED PRN Sodium Chloride 0.9% [Saline Flush] Med 08/29/19 20:32 Active 2.5 ml FLUSH ASDIRECTED PRN Saline Lock Insert [OM.PC] Stat Oth 08/29/19 20:32 Ordered Medication Orders Sodium Chloride (Saline Flush) 10 ml FLUSH ASDIRECTED PRN PRN Reason: Keep Vein Open Sodium Chloride (Saline Flush) 2.5 ml FLUSH ASDIRECTED PRN PRN Reason: Keep Vein Open Labs: Laboratory Tests 08/29/19 08/29/19 08/29/19 Range/Units 20:15 20:15 20:15 WBC 8.64 (4.0-11.0) K/uL RBC 4.22 L (4.30-5.90) M/uL Hgb 14.6 (12.0-16.0) g/dL Hct 43.4 (36.0-46.0) % MCV 102.8 H (80.0-98.0) fL MCH 34.6 H (27.0-32.0) pg MCHC 33.6 (31.0-37.0) g/dL RDW Std Deviation 48.1 (28.0-62.0) fl RDW Coeff of Xiao 13 (11.0-15.0) % Plt Count 374 (150-400) K/uL MPV 9.90 (7.40-12.00) fL Neut % (Auto) 73.9 (48.0-80.0) % Lymph % (Auto) 14.9 L (16.0-40.0) % Elbert % (Auto) 9.1 (0.0-15.0) % Eos % (Auto) 1.6 (0.0-7.0) % Baso % (Auto) 0.5 (0.0-1.5) % Neut # (Auto) 6.4 H (1.4-5.7) K/uL Lymph # (Auto) 1.3 (0.6-2.4) K/uL Elbert # (Auto) 0.8 (0.0-0.8) K/uL Eos # (Auto) 0.1 (0.0-0.7) K/uL Baso # (Auto) 0.0 (0.0-0.1) K/uL Nucleated RBC % 0.0 /100WBC Nucleated RBCs # 0 K/uL INR 1.03 APTT (18.6-31.3) SEC Sodium 136 (136-145) mmol/L Potassium 3.2 L (3.5-5.1) mmol/L Chloride 99 (98-107) mmol/L Carbon Dioxide 23.0 (21.0-32.0) mmol/L BUN 14 (7.0-18.0) mg/dL Creatinine 0.7 (0.6-1.0) mg/dL Est Cr Clr Drug Dosing 66.09 mL/min Estimated GFR (MDRD) > 60.0 ml/min Glucose 99 (74-106) mg/dL Calcium 8.4 L (8.5-10.1) mg/dL Total Bilirubin 0.3 (0.2-1.0) mg/dL AST 13 L (15-37) IU/L ALT 16 (14-63) IU/L Alkaline Phosphatase 144 H (46-116) U/L Troponin I < 0.050 (0.000-0.056) ng/mL Total Protein 7.1 (6.4-8.2) g/dL Albumin 3.6 (3.4-5.0) g/dL Globulin 3.5 (2.6-4.0) g/dL Albumin/Globulin Ratio 1.0 (0.9-1.6) 08/29/19 Range/Units 20:15 WBC (4.0-11.0) K/uL RBC (4.30-5.90) M/uL Hgb (12.0-16.0) g/dL Hct (36.0-46.0) % MCV (80.0-98.0) fL MCH (27.0-32.0) pg MCHC (31.0-37.0) g/dL RDW Std Deviation (28.0-62.0) fl RDW Coeff of Xiao (11.0-15.0) % Plt Count (150-400) K/uL MPV (7.40-12.00) fL Neut % (Auto) (48.0-80.0) % Lymph % (Auto) (16.0-40.0) % Elbert % (Auto) (0.0-15.0) % Eos % (Auto) (0.0-7.0) % Baso % (Auto) (0.0-1.5) % Neut # (Auto) (1.4-5.7) K/uL Lymph # (Auto) (0.6-2.4) K/uL Elbert # (Auto) (0.0-0.8) K/uL Eos # (Auto) (0.0-0.7) K/uL Baso # (Auto) (0.0-0.1) K/uL Nucleated RBC % /100WBC Nucleated RBCs # K/uL INR APTT 35.2 H (18.6-31.3) SEC Sodium (136-145) mmol/L Potassium (3.5-5.1) mmol/L Chloride (98-107) mmol/L Carbon Dioxide (21.0-32.0) mmol/L BUN (7.0-18.0) mg/dL Creatinine (0.6-1.0) mg/dL Est Cr Clr Drug Dosing mL/min Estimated GFR (MDRD) ml/min Glucose (74-106) mg/dL Calcium (8.5-10.1) mg/dL Total Bilirubin (0.2-1.0) mg/dL AST (15-37) IU/L ALT (14-63) IU/L Alkaline Phosphatase (46-116) U/L Troponin I (0.000-0.056) ng/mL Total Protein (6.4-8.2) g/dL Albumin (3.4-5.0) g/dL Globulin (2.6-4.0) g/dL Albumin/Globulin Ratio (0.9-1.6) Meds: Medications Generic Name Dose Route Start Last Admin Trade Name Becca PRN Reason Stop Dose Admin Sodium Chloride 10 ml 08/29/19 20:32 Saline Flush FLUSH ASDIRECTED PRN Keep Vein Open Sodium Chloride 2.5 ml 08/29/19 20:32 Saline Flush FLUSH ASDIRECTED PRN Keep Vein Open Discontinued Medications Generic Name Dose Route Start Last Admin Trade Name Freq PRN Reason Stop Dose Admin Diltiazem HCl 20 mg 08/29/19 20:34 08/29/19 20:39 Diltiazem IVPUSH 08/29/19 20:35 20 mg ONETIME ONE Administration Sodium Chloride 1,000 mls @ 999 mls/hr 08/29/19 20:32 08/29/19 20:38 Normal Saline IV 08/29/19 21:32 999 mls/hr BOLUS ONE Administration Potassium Chloride 40 meq 08/29/19 21:33 08/29/19 21:39 Potassium Chloride PO 08/29/19 21:34 40 meq ONETIME ONE Administration Departure - Departure Time of Disposition: 21:42 Disposition: Home, Self-Care 01 Condition: Good Clinical Impression: Palpitations, Atrial fibrillation with RVR Instructions: Atrial Fibrillation Forms: ED Department Discharge Additional Instructions: Follow-up with primary care doctor. Take medications as previously prescribed. Return to the ED with any new or worsening symptoms including chest pain, shortness of breath, syncope, lightheadedness, sensation of rapid heartbeat. The following information is given to patients seen in the emergency department who are being discharged to home. This information is to outline your options for follow-up care. We provide all patients seen in our emergency department with a follow-up referral. The need for follow-up, as well as the timing and circumstances, are variable depending upon the specifics of your emergency department visit. If you don't have a primary care physician on staff, we will provide you with a referral. We always advise you to contact your personal physician following an emergency department visit to inform them of the circumstance of the visit and for follow-up with them and/or the need for any referrals to a consulting specialist. The emergency department will also refer you to a specialist when appropriate. This referral assures that you have the opportunity for follow-up care with a specialist. All of these measure are taken in an effort to provide you with optimal care, which includes your follow-up. Under all circumstances we always encourage you to contact your private physician who remains a resource for coordinating your care. When calling for follow-up care, please make the office aware that this follow-up is from your recent emergency room visit. If for any reason you are refused follow-up, please contact the [facility] Emergency Department at and asked to speak to the emergency department charge nurse. Sepsis Event Note - Evaluation Sepsis Screening Result: No Definite Risk - Focused Exam Vital Signs: Vital Signs Temp Pulse Resp BP Pulse Ox 08/29/19 21:50 36.1 C 83 18 111/73 98 08/29/19 20:41 88 18 111/82 95 08/29/19 20:10 36.1 C 130 H 18 143/101 H 96 Date Exam was Performed: 08/29/19 Time Exam was Performed: 22:30 - My Orders Last 24 Hours: My Active Orders 08/29/19 20:18 EKG 12 Lead [EKG Documentation Completion] [RC] STAT 08/29/19 20:32 Cardiac Monitoring [RC] . DIRECTED Oxygen Therapy [RC] ASDIRECTED Pulse Oximetry [RC] ASDIRECTED Sodium Chloride 0.9% [Saline Flush] 10 ml FLUSH ASDIRECTED PRN Sodium Chloride 0.9% [Saline Flush] 2.5 ml FLUSH ASDIRECTED PRN Saline Lock Insert [OM.PC] Stat 08/29/19 21:30 EKG 12 Lead [EKG Documentation Completion] [RC] STAT - Assessment/Plan Last 24 Hours: My Active Orders 08/29/19 20:18 EKG 12 Lead [EKG Documentation Completion] [RC] STAT 08/29/19 20:32 Cardiac Monitoring [RC] . DIRECTED Oxygen Therapy [RC] ASDIRECTED Pulse Oximetry [RC] ASDIRECTED Sodium Chloride 0.9% [Saline Flush] 10 ml FLUSH ASDIRECTED PRN Sodium Chloride 0.9% [Saline Flush] 2.5 ml FLUSH ASDIRECTED PRN Saline Lock Insert [OM.PC] Stat 08/29/19 21:30 EKG 12 Lead [EKG Documentation Completion] [RC] STAT
--- NOTE | 2019-08-29 21:08 | CR ---
Chest: Portable view of the chest was obtained. Comparison: Prior portable chest x-ray of 12/23/18. Heart size is within normal limits for portable technique. Tortuous thoracic aorta is noted. Lungs are clear with no acute parenchymal change. Bony structures are grossly intact. Impression: 1. Nothing acute is identified on portable chest x-ray. Diagnostic code #1 This report was dictated in MDT
[2019-08-29 21:28] LABS: BLOOD UREA NITROGEN,BUN 14 mg/dL (7.0-18.0); CHLORIDE,CL 99 mmol/L (98-107); GLUCOSE RANDOM 99 mg/dL (74-106); POTASSIUM,K 3.2 mmol/L (3.5-5.1); SODIUM,NA 136 mmol/L (136-145)
[2019-08-29] MEDS ORDERED: Potassium Chloride 10% 20 MEQ/15 ML Soln 30 ML UD Cup PO ONE (21:33)
[2019-08-29 22:29] VITALS: BP 111/73; PULSE 83
== END 2019-08-29 21:50 | disposition home or self-care (01) ==
LOC: MW.ED 20:08
DX: I48.91 Unspecified atrial fibrillation (principal); J44.9 Chronic obstructive pulmonary disease, unspecified; Z86.711 Personal history of pulmonary embolism; F17.210 Nicotine dependence, cigarettes, uncomplicated; Z91.040 Latex allergy status; Z91.018 Allergy to other foods; Z79.01 Long term (current) use of anticoagulants; Z79.899 Other long term (current) drug therapy
CPT/HCPCS: 36415; 71045; 80053; 84484; 85025; 85610; 85730; 93005; 96361; 96374; 99285; A9270; J3490; J7030; 99283

== ENCOUNTER 2019-10-03 21:03 | Emergency (ER) | payer MEDICARE, OTHER ==
[2019-10-03 21:11] VITALS: BP 133/73
[2019-10-03] MEDS ORDERED: Sodium Chloride 0.9% 2.5 ML Syringe FLUSH PRN (21:15)
[2019-10-03] MEDS ORDERED: Sodium Chloride 0.9% 10 ML Syringe FLUSH PRN (21:15)
[2019-10-03] MEDS ORDERED: Sodium Chloride 0.9% 10 ML SDV IV PRN (21:15)
--- NOTE | 2019-10-03 21:15 | EDM.PDOC ---
ED HPI GENERAL MEDICAL PROBLEM - General Chief Complaint: Respiratory Problem Stated Complaint: CHEST PAIN/TROUBLE BREATHING Time Seen by Provider: 10/03/19 21:04 Source of Information: Reports: Patient History Limitations: Reports: No Limitations - History of Present Illness INITIAL COMMENTS - FREE TEXT/NARRATIVE: 68-year-old female past medical history of atrial fibrillation with RVR, pulmonary emphysema, pulmonary embolism on rivaroxaban presenting with shortness of breath. She reports the sudden onset of shortness of breath approximately 15 minutes prior to arrival, onset at rest. Denies chest discomfort, fever, cough, hemoptysis, leg swelling, wheezing. Took her albuterol prior to arrival without relief. - Related Data Allergies Allergy/AdvReac Type Severity Reaction Status Date / Time aloe vera Allergy Rash Verified 10/03/19 21:09 latex Allergy Rash Verified 10/03/19 21:09 Home Meds: Home Meds Potassium Chloride [Klor-Con] 10 mg PO BID 10/11/15 [History] Calc/D3/Mag/Zn/[place] [Calcium 600 MG Plus Vit D] 1 tab DAILY 01/16/18 [History] Cholecalciferol (Vitamin D3) [Vitamin D3] 1 tab PO DAILY 12/23/18 [History] Magnesium 250 mg PO DAILY 12/23/18 [History] Rivaroxaban [Xarelto] 20 mg PO DAILY 12/23/18 [History] Tiotropium Br/Olodaterol HCl [Stiolto Respimat Inhal [place]] 2 inh INH DAILY 06/11 [History] Metoprolol Tartrate 50 mg PO DAILY 10/03/19 [History] Past Medical History HEENT History: Reports: Cataract Other HEENT History: wears glasses Cardiovascular History: Reports: Blood Clots/VTE/DVT, Other (See Below) Other Cardiovascular History: Palpitations Respiratory History: Reports: COPD, PE Gastrointestinal History: Reports: None Genitourinary History: Reports: None IMPLEMENTATION ENGINEER History: Reports: None Other IMPLEMENTATION ENGINEER History: partial hysterectomy Musculoskeletal History: Reports: Arthritis, Fracture Other Musculoskeletal History: hx of fx left wrist Neurological History: Reports: None Psychiatric History: Reports: Depression Other Psychiatric History: in June Endocrine/Metabolic History: Reports: None Insulin Pump Model and Shot Dropper: None Hematologic History: Reports: None Immunologic History: Reports: None Oncologic (Cancer) History: Reports: None Dermatologic History: Reports: Psoriasis Other Dermatologic History: left ankle - Infectious Disease History Infectious Disease History: Reports: None - Past Surgical History Head Surgeries/Procedures: Reports: None GI Surgical History: Reports: None, Hernia, Inguinal Female Surgical History: Reports: Hysterectomy, Other (See Below) Other Female Surgeries/Procedures: Bladder Surgery Musculoskeletal Surgical History: Reports: Shoulder Surgery Social & Family History - Family History Family Medical History: Noncontributory - Caffeine Use Caffeine Use: Reports: Soda ED ROS GENERAL - Review of Systems Review Of Systems: See Below Constitutional: Denies: Fever, Chills HEENT: Reports: No Symptoms Respiratory: Reports: Shortness of Breath. Denies: Wheezing, Pleuritic Chest Pain, Cough, Sputum, Hemoptysis Cardiovascular: Denies: Chest Pain, Syncope Endocrine: Reports: No Symptoms GI/Abdominal: Denies: Abdominal Pain, Nausea, Vomiting : Reports: No Symptoms Musculoskeletal: Reports: No Symptoms Skin: Denies: Rash Neurological: Denies: Headache Psychiatric: Reports: No Symptoms ED EXAM, GENERAL - Physical Exam Exam: See Below Free Text/Narrative:: Vital signs reviewed. Nursing notes reviewed. Constitutional: Awake, alert, non-distressed. Head: Normocephalic, atraumatic. Eyes: EOMI, conjunctiva normal, no discharge, no scleral icterus. Ears, Nose, Throat: External ears and nose normal, moist oral mucosa. Cardiovascular: 2+ radial pulse, capillary refill less than 2 seconds. RRR, no M/R/G. No extremity edema. Pulmonary: normal work of breathing, no accessory muscle use. CTA BL Abdomen/GI: Soft, nontender, nondistended, no guarding or rigidity, no masses. Musculoskeletal: No deformities. Integumentary: Appropriate color for ethnicity, warm, dry, no pallor or jaundice , no rash. Neurologic: Alert, answering questions appropriately, normal speech, no facial droop, moving all extremities well. Psychiatric: Appropriate mood and affect, normal thought process. EKG INTERPRETATION EKG Interpretation Comments: 12-Lead ECG Interpretation Acquired: 9:08 PM Rhythm: Sinus rhythm Rate: 73 bpm [place]: Normal Intervals: Normal. QTc 419 ms by manual calculation Ectopy: None Ischemic Changes: None apparent RV Strain: No obvious RV strain pattern. ST Segments/T-Waves: No notable changes Interpretation: Unremarkable Course - Vital Signs Text/Narrative:: 68-year-old female presenting with shortness of breath. Patient hemodynamically stable, afebrile, well-appearing, looks nontoxic. Differential diagnosis includes but is not limited to: Acute coronary syndrome, pulmonary embolism, pneumonia, pleural effusion, pneumothorax, viral syndrome, COPD exacerbation, asthma, congestive heart failure, etc. Patient breathing comfortably on room air, lungs are clear to auscultation. CBC shows normal cell lines. D-dimer is negative and patient is anticoagulated. Troponin is negative. Electrolytes and renal function are normal. Hepatic markers are reassuring. Twelve-lead EKG shows no acute ischemia or acute right ventricular strain. Patient was monitored for a period of several hours in the emergency department and her dyspnea totally resolved. There is no evidence of acute bronchospasm. Her chest x-ray was concerning for a possible right infrahilar opacity but the patient is afebrile, has no cough, and shows no systemic signs of illness so I do not think that she has pneumonia clinically. She shows no signs of congestive heart failure and has no evidence of such. There is no EKG or serum biomarker evidence of myocardial ischemia. Negative d-dimer with anticoagulation argues against pulmonary embolism. No evidence of mediastinal widening. Etiology of patient's dyspnea is not entirely clear but there is no evidence of an acute emergency medical condition. We did ambulate her and her oxygen saturations are reassuring, she did not feel short of breath or have any chest discomfort with ambulation and felt better, wanted to be discharged home. Plan: Patient is stable to discharge home with outpatient primary care follow- up. Strict emergency department return precautions were provided, patient indicated understanding. All questions were answered prior to departure. Discharged in good condition. Last Recorded V/S: Last Vital Signs Temp 36.1 C 10/03/19 23:45 Pulse 80 10/03/19 23:45 Resp 18 10/03/19 23:45 BP 133/73 10/03/19 21:05 Pulse Ox 95 10/03/19 23:45 - Orders/Labs/Meds Orders: Active Orders 24 hr Category Date Time Status Communication Order [RC] STAT Care 10/03/19 23:02 Active EKG 12 Lead [EKG Documentation Completion] [RC] STAT Care 10/03/19 21:18 Active Peripheral IV Insertion Adult [OM.PC] Stat Oth 10/03/19 21:15 Ordered Labs: Laboratory Tests 10/03/19 10/03/19 10/03/19 Range/Units 21:08 21:08 21:08 WBC 7.90 (4.0-11.0) K/uL RBC 4.31 (4.30-5.90) M/uL Hgb 14.6 (12.0-16.0) g/dL Hct 44.1 (36.0-46.0) % MCV 102.3 H (80.0-98.0) fL MCH 33.9 H (27.0-32.0) pg MCHC 33.1 (31.0-37.0) g/dL RDW Std Deviation 49.9 (28.0-62.0) fl RDW Coeff of Xiao 13 (11.0-15.0) % Plt Count 301 (150-400) K/uL MPV 9.90 (7.40-12.00) fL Neut % (Auto) 65.5 (48.0-80.0) % Lymph % (Auto) 24.9 (16.0-40.0) % [place]key % (Auto) 6.6 (0.0-15.0) % Eos % (Auto) 2.5 (0.0-7.0) % Baso % (Auto) 0.5 (0.0-1.5) % Neut # (Auto) 5.2 (1.4-5.7) K/uL Lymph # (Auto) 2.0 (0.6-2.4) K/uL Sharkey # (Auto) 0.5 (0.0-0.8) K/uL Eos # (Auto) 0.2 (0.0-0.7) K/uL Baso # (Auto) 0.0 (0.0-0.1) K/uL Nucleated RBC % 0.0 /100WBC Nucleated RBCs # 0 K/uL D-Dimer, Quantitative 0.39 (0.0-0.50) mg/L FEU Sodium 137 (136-145) mmol/L Potassium 3.6 (3.5-5.1) mmol/L Chloride 101 (98-107) mmol/L Carbon Dioxide 24.0 (21.0-32.0) mmol/L BUN 17 (7.0-18.0) mg/dL Creatinine 0.8 (0.6-1.0) mg/dL Est Cr Clr Drug Dosing TNP Estimated GFR (MDRD) > 60.0 ml/min Glucose 94 (74-106) mg/dL Calcium 8.6 (8.5-10.1) mg/dL Total Bilirubin 0.2 (0.2-1.0) mg/dL AST 18 (15-37) IU/L ALT 16 (14-63) IU/L Alkaline Phosphatase 141 H (46-116) U/L Troponin I < 0.050 (0.000-0.056) ng/mL Total Protein 7.3 (6.4-8.2) g/dL Albumin 3.9 (3.4-5.0) g/dL Globulin 3.4 (2.6-4.0) g/dL Albumin/Globulin Ratio 1.1 (0.9-1.6) Meds: Medications Discontinued Medications Generic Name Dose Route Start Last Admin Trade Name Freq PRN Reason Stop Dose Admin Sodium Chloride 10 ml 10/03/19 21:15 Saline Flush FLUSH ASDIRECTED PRN Keep Vein Open Sodium Chloride 2.5 ml 10/03/19 21:15 Saline Flush FLUSH ASDIRECTED PRN Keep Vein Open Sodium Chloride 10 ml 10/03/19 21:15 Normal Saline IV ASDIRECTED PRN IV Use Departure - Departure Time of Disposition: 23:35 Disposition: Home, Self-Care 01 Condition: Good Clinical Impression: Dyspnea Qualifiers: Dyspnea type: unspecified Qualified Code(s): R06.00 - Dyspnea, unspecified - Discharge Information *PRESCRIPTION DRUG MONITORING PROGRAM REVIEWED*: Not Applicable *COPY OF PRESCRIPTION DRUG MONITORING REPORT IN PATIENT SUZY: Not Applicable Instructions: Shortness of Breath, Adult, [id number] Referrals: [facility] - Family Practice [Provider Group] PCP,None [Primary Care Provider] - 3 Days (Follow-up with your primary medical doctor or our family medicine clinic in the next 3 to 5 days for reevaluation.) Forms: ED Department Discharge Additional Instructions: Thank you for choosing the [facility] emergency department in [place] for your medical needs today. It was a pleasure caring for you. You were seen in the emergency department for shortness of breath. Your blood work, EKG, and x-rays are reassuring. The cause of your symptoms is not obvious at this point, but we do not see any sign of an emergency medical condition. You should follow-up with your doctor in the next 2 to 3 days for reevaluation or come back to the emergency department immediately if you are feeling worse. Please return the emergency department immediately if your symptoms worsen or if you feel worse. The following information is given to patients seen in the emergency department who are being discharged. This information is to outline your options for follow -up care. We provide all patients seen in our emergency department with a follow -up referral. The need for follow-up, as well as the timing and circumstances, are variable depending upon the specifics of your emergency department visit. If you don't have a primary care physician on staff, we will provide you with a referral. We always advise you to contact your personal physician following an emergency department visit to inform them of the circumstance of the visit and for follow-up with them and/or the need for any referrals to a consulting specialist. The emergency department will also refer you to a specialist when appropriate. This referral assures that you have the opportunity for follow-up care with a specialist. All of these measure are taken in an effort to provide you with optimal care, which includes your follow-up. Under all circumstances we always encourage you to contact your private physician who remains a resource for coordinating your care. When calling for follow-up care, please make the office aware that this follow-up is from your recent emergency room visit. If for any reason you are refused follow-up, please contact the [facility] Emergency Department at and asked to speak to the emergency department charge nurse. If you do not have a primary care physician that is caring for you, you can contact these clinics below to set up an appointment to establish care: [facility] - Primary Care [address] [place] [id number] [place] [address] Sepsis Event Note (ED) - Evaluation Sepsis Screening Result: No Definite Risk - Focused Exam Vital Signs: Vital Signs Temp Pulse Resp BP Pulse Ox 10/03/19 23:45 36.1 C 80 18 95 10/03/19 21:05 35.9 C L 73 20 133/73 93 L - My Orders Last 24 Hours: My Active Orders 10/03/19 21:15 Peripheral IV Insertion Adult [OM.PC] Stat 10/03/19 21:18 EKG 12 Lead [EKG Documentation Completion] [RC] STAT 10/03/19 23:02 Communication Order [RC] STAT - Assessment/Plan Last 24 Hours: My Active Orders 10/03/19 21:15 Peripheral IV Insertion Adult [OM.PC] Stat 10/03/19 21:18 EKG 12 Lead [EKG Documentation Completion] [RC] STAT 10/03/19 23:02 Communication Order [RC] STAT
[2019-10-03 21:41] LABS: BLOOD UREA NITROGEN,BUN 17 mg/dL (7.0-18.0); CHLORIDE,CL 101 mmol/L (98-107); GLUCOSE RANDOM 94 mg/dL (74-106); POTASSIUM,K 3.6 mmol/L (3.5-5.1); SODIUM,NA 137 mmol/L (136-145)
--- NOTE | 2019-10-03 22:03 | CR ---
Indication: SOB. Hypoxia Technique: Chest two views Comparison: 08/29/2019 Findings/Impression: Cardiovascular and mediastinum: Normal cardiac size. An unfolded aorta. Lungs and pleural space: Mild hyperinflation compatible with COPD. Probable mild basilar vascular crowding. A small subtle right infrahilar opacity could be related to minor subsegmental atelectasis. Correlate clinically and follow-up to exclude a small evolving infiltrate. No pleural effusions. No pneumothorax seen. Bones and soft tissues: No significant change. Dictated by Donald Mims MD @ 10/03/2019 10:01:07 PM Dictated by: Donald Mims MD @ 10/03/2019 22:01:21 (Electronically Signed)
[2019-10-03 23:51] VITALS: PULSE 80
== END 2019-10-03 23:48 | disposition home or self-care (01) ==
LOC: MW.ED 21:03
DX: R06.00 Dyspnea, unspecified (principal); F32.9 Major depressive disorder, single episode, unspecified; J44.9 Chronic obstructive pulmonary disease, unspecified; Z91.040 Latex allergy status; Z91.048 Other nonmedicinal substance allergy status; Z79.899 Other long term (current) drug therapy
CPT/HCPCS: 36415; 71046; 71046-26; 80053; 84484; 85025; 85379; 93005; 99283; 99285-25

== ENCOUNTER 2020-09-03 18:52 | Emergency (ER) | payer MEDICARE, OTHER ==
[2020-09-03] MEDS ORDERED: Sodium Chloride 0.9% 1,000 ML IV SCH (19:15)
[2020-09-03 19:30] LABS: BLOOD UREA NITROGEN,BUN 11 mg/dL (7.0-18.0); CARBON DIOXIDE,CO2 22.3 mmol/L (21.0-32.0); CHLORIDE,CL 100 mmol/L (98-107); GLUCOSE RANDOM 97 mg/dL (74-106); POTASSIUM,K 3.3 mmol/L (3.5-5.1); SODIUM,NA 137 mmol/L (136-145)
--- NOTE | 2020-09-03 19:32 | EDM.PDOC ---
ED HPI GENERAL MEDICAL PROBLEM <Mike Skaggs - Last Filed: 09/03/20 19:32> <Adolfo Christian - Last Filed: 09/04/20 04:05> - General Chief Complaint: Trauma Stated Complaint: TRAUMA ALERT Time Seen by Provider: 09/03/20 19:02 - History of Present Illness INITIAL COMMENTS - FREE TEXT/NARRATIVE: CHIEF COMPLAINT(S): Fall HISTORY OF PRESENT ILLNESS: This is a 69-year-old woman with a past medical history of of prior history of pulmonary embolism and atrial fibrillation with RVR on Xarelto who presents to the emergency department as a trauma alert after a fall. Per EMS: The patient was found on the ground. She had stable vitals in route. The patient states that she was standing in her kitchen making food when she fell directly down. She states that she does not know if she hit her head but is not experiencing any headache and did not have any loss of consciousness. She denies any preceding chest pain or shortness of breath she currently denies any chest pain, shortness of breath, abdominal pain, nausea or vomiting. She denies any numbness, tingling, or weakness. She states that she does a daily drinker and drank approximately 3 drinks today. She denies any other symptoms. REVIEW OF SYSTEMS: Constitutional: Denies fever, chills. Eyes: Denies eye pain Ears, Nose, Mouth, & Throat: Denies earache Cardiovascular: Denies chest pain Respiratory: Denies shortness of breath Gastrointestinal: Denies Nausea, vomiting, diarrhea, hematochezia. Genitourinary: Denies hematuria Skin:Denies a rash Neurological: Denies blurred vision Psychiatric: Denies depression PAST MEDICAL HISTORY: As per history of present illness and as reviewed below otherwise noncontributory. SURGICAL HISTORY: As per history of present illness and as reviewed below otherwise noncontributory. SOCIAL HISTORY: As per history of present illness and as reviewed below otherwise noncontributory. FAMILY HISTORY: As per history of present illness and as reviewed below otherwise noncontributory. EXAMINATION OF ORGAN SYSTEMS/BODY AREAS: VITALS: Blood pressure was 95/51, heart rate 78, respiratory rate 18 with an oxygen saturation of 93% on room air. Temperature 36.4 GENERAL: The patient is well-nourished, well-developed, in no acute distress. The patient does smell of alcohol. HEAD, EARS, EYES, NOSE THROAT: Normocephalic, atraumatic. PERRL. EOM are intact. There was no facial bone tenderness. Ears were clear, no hemotympanum. Oropharynx is clear. No missing or chipped teeth. Neck was supple and nontender. C-collar in place. RESPIRATORY: No tachypnea. Equal breath sounds are heard bilaterally. Lungs sawyer ar to auscultation. CARDIOVASCULAR: Regular rate and rhythm. Heart sounds were normal. There is no S3, S4, murmur, rub. There is no chest wall tenderness. No crepitus. Radial and dorsalis pedis pulses were palpable and equal bilaterally. ABDOMEN: The abdomen was soft, nondistended, and nontender to palpation. There was no guarding or rebound tenderness. Bowel sounds were present throughout the abdomen and normal. Pelvis was stable and not tender to rock. SPINE: There is no cervical, thoracic or lumbar spine tenderness. EXTREMITIES: Extremity examination revealed no deformity, localized swelling, contusions, or other abnormality. Patient is moving all 4 extremities equally. Distal pulses palpable in bilterally. NEUROLOGICAL: Alert and oriented. On neurological examination Guillermo Coma Scale was 15. Facies were symmetrical. Strength was good in all extremities. SKIN: Appropriately warm to touch. No rashes, or pallor. There is some minor bruising to the patient's left cheek otherwise no other abnormalities. MEDICAL DECISION MAKING AND COURSE IN THE ED WITH INTERPRETATION/REVIEW OF DIAGNOSTIC STUDIES: This is a 69-year-old woman with a past medical history of atrial fibrillation and pulmonary embolism on Xarelto who presents to emergency department as a trauma alert. Immediately upon entering the resuscitation bay ATLS protocol was followed, the patient is disrobed, and placed on continuous cardiac monitoring as well as pulse oximetry. Patient tells me their name displaying a patent airway, breath sounds are equal bilaterally, and patient has palpable pulses in all 4 extremities. The patient does not have any gross deformities, and does not have any gross deficit. Upon exposure no further lesions are seen. Palpation of the cervical, thoracic, and lumbar spine reveals no tenderness. IV access is obtained, and trauma labs are sent. Given the patient is on Xarelto and the patient is intoxicated will obtain CT head and CT C-spine to evaluate for any intracranial bleeding or fracture of her cervical spine. Will obtain a chest x-ray and pelvic x-ray. The patient's blood pressure is borderline we will provide the patient with 1 L of warmed normal saline bolus. We will reevaluate the patient's oxygen status as the patient is speaking appropriately and is not tachypneic. quality assurance monitor body did reveal sinus rhythm at a normal rate. No evidence of arrhythmia. Pulse oximetry with good waveform was 93 to 94% on room air. With this initial workup completed the patient is suitable for transfer to CT. The patient was evaluated at the time of signout. The patient was signed out to [facility] night team physician pending work-up and final disposition DISPOSITION: Patient was signed out to [facility] night physician pending work-up and final disposition PROCEDURES: Cardiac monitoring interpretation, pulse oximetry interpretation FINAL IMPRESSION(S)/DIAGNOSES: 1. Acute mechanical fall on blood thinners 2. Acute alcohol intoxication Mike Skaggs M.D. (Mike Skaggs) 8:06 PM: Signout received at [address] Brennan. This is a 69-year-old female who presents ER today secondary to a fall. Patient does have a history of atrial fibrillation and is currently on anticoagulation therapy. In the ED, a CT scan of her head and C-spine revealed no significant pathology. No evidence of bleed or cervical spine injury. C-collar was removed. Patient had no pain or discomfort on palpation of her C, T, L-spine. Patient had no pain, numbness, paresthesias with active flexion/rotation of her C-spine. Patient is clinically cleared. Patient's alcohol level is elevated but appears to be cognizant and has no distracting injuries at this time. Chest x-ray: Chest Xray: Normal cardiac silhouette No infiltrates or effusions identified. No PTX No evidence of acute bony fracture. As interpreted by ER MD: Anahi Pelvis: No acute fracture dislocation identified in the pelvis. As interpreted by Dr. Freedman CT head/C-spine: No acute cervical spine injury or head pathology per radiology. Patient's labs are all within normal limits except for an alcohol level of 221. I have discussed her results with her. Patient does admit to drinking 2 alcoholic beverages earlier today but is surprised that her alcohol level is this high. Patient reports that she has not had any alcoholic beverages for approximately 10 days until yesterday when she had 2 drinks and then again today she had a second 2 drinks. Patient currently is alert awake and orient x3. Patient appears to be exhibiting appropriate competency in the capacity for medical decision-making. Patient will be monitored in the ED until clinically sober at which point patient will be stable for discharge to home. Reassessment at the time of disposition demonstrates that the patient is in no acute distress. The patient has remained stable throughout the entire ED visit and is without objective evidence for acute process requiring urgent intervention or hospitalization. The patient is stable for discharge, counseling is provided as documented above, discussed symptomatic treatment and specific conditions for return. I have spoken with the patient/caregiver and discussed todays findings, in addition to providing specific details for the plan of care. Questions are answered and there is agreement with the plan. (Adolfo Christian) - Related Data Allergies Allergy/AdvReac Type Severity Reaction Status Date / Time aloe vera Allergy Rash Verified 09/03/20 19:13 latex Allergy Rash Verified 09/03/20 19:13 Home Meds: Home Meds Potassium Chloride [Klor-Con] 10 mg PO BID 10/11/15 [History] Calc/D3/Mag/Zn/John/Talon/Mcwilliams [Calcium 600 MG Plus Vit D] 1 tab DAILY 01/16/18 [History] Cholecalciferol (Vitamin D3) [Vitamin D3] 1 tab PO DAILY 12/23/18 [History] Magnesium 250 mg PO DAILY 12/23/18 [History] Rivaroxaban [Xarelto] 20 mg PO DAILY 12/23/18 [History] Tiotropium Br/Olodaterol HCl [Stiolto Respimat Inhal Wood] 2 inh INH DAILY 12/23/18 [History] Metoprolol Tartrate 25 mg PO DAILY 10/03/19 [History] Rosuvastatin Calcium 10 mg PO BEDTIME 09/03/20 [History] Past Medical History HEENT History: Reports: Cataract Other HEENT History: wears glasses Cardiovascular History: Reports: Blood Clots/VTE/DVT, Other (See Below) Other Cardiovascular History: Palpitations Respiratory History: Reports: COPD, PE Gastrointestinal History: Reports: None Genitourinary History: Reports: None DRAW FURNACE TENDER History: Reports: None Other DRAW FURNACE TENDER History: partial hysterectomy Musculoskeletal History: Reports: Arthritis, Fracture Other Musculoskeletal History: hx of fx left wrist Neurological History: Reports: None Psychiatric History: Reports: Depression Other Psychiatric History: in June Endocrine/Metabolic History: Reports: None Insulin Pump Model and Tufter Operator: None Hematologic History: Reports: None Immunologic History: Reports: None Oncologic (Cancer) History: Reports: None Dermatologic History: Reports: Psoriasis Other Dermatologic History: left ankle - Infectious Disease History Infectious Disease History: Reports: None - Past Surgical History Head Surgeries/Procedures: Reports: None HEENT Surgical History: Reports: Tonsillectomy Cardiovascular Surgical History: Reports: None Respiratory Surgical History: Reports: None GI Surgical History: Reports: None, Hernia, Inguinal Other GI Surgeries/Procedures: rectal-vaginal fistula repair Female Surgical History: Reports: Hysterectomy, Other (See Below) Other Female Surgeries/Procedures: Bladder Surgery Endocrine Surgical History: Reports: None Neurological Surgical History: Reports: None Musculoskeletal Surgical History: Reports: Shoulder Surgery Other Musculoskeletal Surgeries/Procedures:: shoulder manipulation, closed reduction left wrist fx. Oncologic Surgical History: Reports: None Dermatological Surgical History: Reports: None <Mike Skaggs - Last Filed: 09/03/20 19:32> Social & Family History - Family History Family Medical History: No Pertinent Family History - Tobacco Use Packs/Tins Daily: 2 - Caffeine Use Caffeine Use: Reports: Soda - Recreational Drug Use Recreational Drug Use: No <Mike Skaggs - Last Filed: 09/03/20 19:32> Review of Systems - Review of Systems Review Of Systems: See Below <Mike Skaggs - Last Filed: 09/03/20 19:32> ED EXAM, GENERAL - Physical Exam Exam: See Below <Mike Skaggs - Last Filed: 09/03/20 19:32> <Adolfo Christian - Last Filed: 09/04/20 04:05> #1 Interpretation EKG Interpretation Comments: EKG: As interpreted by ER physician: Anahi: Nonspecific ST-T wave abnormalities Normal axis No evidence of ST elevation NM Normal sinus rhythm heart rate of 73 (Adolfo Christian) Course - Vital Signs Last Recorded V/S: Last Vital Signs Temp 97.6 F 09/03/20 19:06 Pulse 70 09/03/20 21:00 Resp 16 09/03/20 21:00 BP 97/55 L 09/03/20 21:00 Pulse Ox 93 L 09/03/20 21:00 - Orders/Labs/Meds Labs: Laboratory Tests 09/03/20 09/03/20 09/03/20 Range/Units 18:55 18:55 18:55 WBC 8.05 (4.0-11.0) K/uL RBC 3.52 L (4.30-5.90) M/uL Hgb 11.6 L (12.0-16.0) g/dL Hct 34.7 L (36.0-46.0) % MCV 98.6 H (80.0-98.0) fL MCH 33.0 H (27.0-32.0) pg MCHC 33.4 (31.0-37.0) g/dL RDW Std Deviation 48.9 (28.0-62.0) fl RDW Coeff of Xiao 14 (11.0-15.0) % Plt Count 356 (150-400) K/uL MPV 9.80 (7.40-12.00) fL Neut % (Auto) 62.8 (48.0-80.0) % Lymph % (Auto) 21.4 (16.0-40.0) % Donley % (Auto) 8.2 (0.0-15.0) % Eos % (Auto) 6.5 (0.0-7.0) % Baso % (Auto) 1.1 (0.0-1.5) % Neut # (Auto) 5.1 (1.4-5.7) K/uL Lymph # (Auto) 1.7 (0.6-2.4) K/uL Donley # (Auto) 0.7 (0.0-0.8) K/uL Eos # (Auto) 0.5 (0.0-0.7) K/uL Baso # (Auto) 0.1 (0.0-0.1) K/uL Nucleated RBC % 0.0 /100WBC Nucleated RBCs # 0 K/uL INR 1.17 Sodium 137 (136-145) mmol/L Potassium 3.3 L (3.5-5.1) mmol/L Chloride 100 (98-107) mmol/L Carbon Dioxide 22.3 (21.0-32.0) mmol/L BUN 11 (7.0-18.0) mg/dL Creatinine 0.9 (0.6-1.0) mg/dL Est Cr Clr Drug Dosing 48.80 mL/min Estimated GFR (MDRD) > 60.0 ml/min Glucose 97 (74-106) mg/dL Calcium 7.9 L (8.5-10.1) mg/dL Magnesium 1.3 L (1.8-2.4) mg/dL Total Bilirubin 0.1 L (0.2-1.0) mg/dL AST 22 (15-37) IU/L ALT 35 (14-63) IU/L Alkaline Phosphatase 168 H (46-116) U/L Creatine Kinase 45 (26-308) U/L Troponin I < 0.050 (0.000-0.056) ng/mL Total Protein 6.2 L (6.4-8.2) g/dL Albumin 2.7 L (3.4-5.0) g/dL Globulin 3.5 (2.6-4.0) g/dL Albumin/Globulin Ratio 0.8 L (0.9-1.6) TSH 3rd Generation 1.53 (0.36-3.74) uIU/mL Urine Color Urine Appearance Urine pH (5.0-8.0) Ur Specific [place] (1.001-1.035) Urine Protein (NEGATIVE) mg/dL Urine Glucose (UA) (NEGATIVE) mg/dL Urine Ketones (NEGATIVE) mg/dL Urine Occult Blood (NEGATIVE) Urine Nitrite (NEGATIVE) Urine Bilirubin (NEGATIVE) Urine Urobilinogen (<2.0) EU/dL Ur Leukocyte Esterase (NEGATIVE) Urine Opiates Screen (NEGATIVE) Ur Oxycodone Screen (NEGATIVE) Urine Methadone Screen (NEGATIVE) Ur Barbiturates Screen (NEGATIVE) Ur Phencyclidine Scrn (NEGATIVE) Ur Amphetamine Screen (NEGATIVE) U Methamphetamines Scrn (NEGATIVE) U Benzodiazepines Scrn (NEGATIVE) U Cocaine Metab Screen (NEGATIVE) U Marijuana (THC) Screen (NEGATIVE) Ethyl Alcohol 221 mg/dL SARS-CoV-2 RNA (CARMEN) (NEGATIVE) 09/03/20 09/03/20 09/03/20 Range/Units 19:40 19:40 19:47 WBC (4.0-11.0) K/uL RBC (4.30-5.90) M/uL Hgb (12.0-16.0) g/dL Hct (36.0-46.0) % MCV (80.0-98.0) fL MCH (27.0-32.0) pg MCHC (31.0-37.0) g/dL RDW Std Deviation (28.0-62.0) fl RDW Coeff of Xiao (11.0-15.0) % Plt Count (150-400) K/uL MPV (7.40-12.00) fL Neut % (Auto) (48.0-80.0) % Lymph % (Auto) (16.0-40.0) % Donley % (Auto) (0.0-15.0) % Eos % (Auto) (0.0-7.0) % Baso % (Auto) (0.0-1.5) % Neut # (Auto) (1.4-5.7) K/uL Lymph # (Auto) (0.6-2.4) K/uL Donley # (Auto) (0.0-0.8) K/uL Eos # (Auto) (0.0-0.7) K/uL Baso # (Auto) (0.0-0.1) K/uL Nucleated RBC % /100WBC Nucleated RBCs # K/uL INR Sodium (136-145) mmol/L Potassium (3.5-5.1) mmol/L Chloride (98-107) mmol/L Carbon Dioxide (21.0-32.0) mmol/L BUN (7.0-18.0) mg/dL Creatinine (0.6-1.0) mg/dL Est Cr Clr Drug Dosing mL/min Estimated GFR (MDRD) ml/min Glucose (74-106) mg/dL Calcium (8.5-10.1) mg/dL Magnesium (1.8-2.4) mg/dL Total Bilirubin (0.2-1.0) mg/dL AST (15-37) IU/L ALT (14-63) IU/L Alkaline Phosphatase (46-116) U/L Creatine Kinase (26-308) U/L Troponin I (0.000-0.056) ng/mL Total Protein (6.4-8.2) g/dL Albumin (3.4-5.0) g/dL Globulin (2.6-4.0) g/dL Albumin/Globulin Ratio (0.9-1.6) TSH 3rd Generation (0.36-3.74) uIU/mL Urine Color YELLOW Urine Appearance CLEAR Urine pH 5.0 (5.0-8.0) Ur Specific [place] 1.010 (1.001-1.035) Urine Protein NEGATIVE (NEGATIVE) mg/dL Urine Glucose (UA) NEGATIVE (NEGATIVE) mg/dL Urine Ketones NEGATIVE (NEGATIVE) mg/dL Urine Occult Blood NEGATIVE (NEGATIVE) Urine Nitrite NEGATIVE (NEGATIVE) Urine Bilirubin NEGATIVE (NEGATIVE) Urine Urobilinogen 0.2 (<2.0) EU/dL Ur Leukocyte Esterase NEGATIVE (NEGATIVE) Urine Opiates Screen NEGATIVE (NEGATIVE) Ur Oxycodone Screen NEGATIVE (NEGATIVE) Urine Methadone Screen NEGATIVE (NEGATIVE) Ur Barbiturates Screen NEGATIVE (NEGATIVE) Ur Phencyclidine Scrn NEGATIVE (NEGATIVE) Ur Amphetamine Screen NEGATIVE (NEGATIVE) U Methamphetamines Scrn NEGATIVE (NEGATIVE) U Benzodiazepines Scrn NEGATIVE (NEGATIVE) U Cocaine Metab Screen NEGATIVE (NEGATIVE) U Marijuana (THC) Screen NEGATIVE (NEGATIVE) Ethyl Alcohol mg/dL SARS-CoV-2 RNA (CARMEN) NEGATIVE (NEGATIVE) Meds: Medications Discontinued Medications Generic Name Dose Route Start Last Admin Trade Name Freq PRN Reason Stop Dose Admin Sodium Chloride 1,000 mls @ 999 mls/hr 09/03/20 19:15 09/03/20 19:06 Normal Saline IV 999 mls/hr ASDIRECTED FILIBERTO Administration Departure <Mike Skaggs - Last Filed: 09/03/20 19:32> - Departure Time of Disposition: 21:00 Condition: Good <Adolfo Christian - Last Filed: 09/04/20 04:05> - Departure Disposition: Home, Self-Care 01 Clinical Impression: Fall in elderly patient, Anticoagulated, History of atrial fibrillation Alcohol intoxication Qualifiers: Complication of substance-induced condition: uncomplicated Qualified Code(s): F10.920 - Alcohol use, unspecified with intoxication, uncomplicated - Discharge Information Instructions: Fall Prevention in the Home, Adult, [id number], Alcohol Intoxication, [id number] Referrals: PCP,None [Primary Care Provider] - Forms: ED Department Discharge Additional Instructions: Your seen and evaluated in the ER today as a trauma patient secondary to a fall earlier today especially in light of your anticoagulation therapy secondary to your history of atrial fibrillation. Although I understand that your knees give out frequently, your alcohol level of 221 is not assisting you with your stability and is likely increasing your likelihood of falling multiple times out today. Please try to cut back on your alcohol use as this will likely decrease the amount of falls that you have been experiencing. For reference, and alcohol level of 80 is considered legally intoxicated to drive, your alcohol level was almost [address] scan of your head as well as your cervical spine did not reveal any evidence of injury. The x-ray of your chest did not reveal any abnormalities. The x-ray of your pelvis did not reveal any evidence of any fractures. You may take Tylenol or ibuprofen [id number] to assist you with any headaches or pain that you might have after the fall. Please make an appointment to follow-up with your doctor in the next 3 to 4 days for reevaluation and possible assistance with helping you with excessive alcohol use. The following information is given to patients seen in the emergency department who are being discharged to home. This information is to outline your options for follow-up care. We provide all patients seen in our emergency department with a follow-up referral. The need for follow-up, as well as the timing and circumstances, are variable depending upon the specifics of your emergency department visit. If you don't have a primary care physician on staff, we will provide you with a referral. We always advise you to contact your personal physician following an emergency department visit to inform them of the circumstance of the visit and for follow-up with them and/or the need for any referrals to a consulting specialist. The emergency department will also refer you to a specialist when appropriate. This referral assures that you have the opportunity for follow-up care with a specialist. All of these measure are taken in an effort to provide you with optimal care, which includes your follow-up. Under all circumstances we always encourage you to contact your private physician who remains a resource for coordinating your care. When calling for follow-up care, please make the office aware that this follow-up is from your recent emergency room visit. If for any reason you are refused follow-up, please contact the [facility] Emergency Department at and asked to speak to the emergency department charge nurse. [facility] - [facility] [address] [place] [address] [facility] [address] [place] [address] Sepsis Event Note (ED) - Evaluation Sepsis Screening Result: No Definite Risk <Mike Skaggs - Last Filed: 09/03/20 19:32> - Focused Exam Vital Signs: Vital Signs Temp Pulse Resp BP Pulse Ox 09/03/20 21:00 70 16 97/55 L 93 L 09/03/20 20:12 71 16 105/56 L 93 L 09/03/20 19:50 73 16 95/46 L 93 L 09/03/20 19:29 74 16 96/48 L 93 L 09/03/20 19:06 97.6 F 78 95/51 L 93 L
--- NOTE | 2020-09-03 19:40 | CR ---
INDICATION: Pelvis injury from fall TECHNIQUE: Pelvis radiograph 1 views COMPARISON: None FINDINGS: Bone: No acute fractures or aggressive bone lesions are identified. Moderate diffuse osteopenia is noted. Joint: The hip joints are unremarkable. The visualized sacroiliac joints are unremarkable in appearance. The pubic symphysis is normal in appearance. Soft tissue: Unremarkable. The visualized bowel gas pattern of the pelvis is unremarkable in appearance. No radiopaque foreign bodies are seen. IMPRESSION: 1. No acute osseous injuries or abnormalities are noted. Dictated by: Alon Telles MD @ 09/03/2020 19:40:16 (Electronically Signed)
--- NOTE | 2020-09-03 19:40 | CR ---
INDICATION: Chest injury from fall TECHNIQUE: Chest radiograph 1 view COMPARISON: 09/22/2019 FINDINGS: Mediastinum: The mediastinum is normal in appearance. The heart silhouette is normal in size and morphology. Lung: Both lungs are unremarkable in appearance. No sign of pleural effusion seen. No pneumothorax is identified. Bone and Soft tissue: Unremarkable for age. Moderate diffuse osteopenia is noted. IMPRESSION: 1. No acute cardiopulmonary disease is seen. Dictated by: Alon Telles MD @ 09/03/2020 19:39:50 (Electronically Signed)
--- NOTE | 2020-09-03 19:49 | CT ---
INDICATION: Head injury from Fall on xarelto TECHNIQUE: CT Head without i.v. contrast. Coronal and sagittal reformats were obtained. COMPARISON: None FINDINGS: CSF space: Unremarkable for age. Brain: No evidence of mass, acute infarction or hemorrhage is seen. No mass-effect or midline shift is seen. Mild diffuse cortical atrophy is noted. The brain parenchyma is otherwise normal in appearance with preservation of the botello-white matter junction. Calvarium: The visualized paranasal sinuses are well aerated. The mastoid air cells are clear. The visualized orbits are grossly unremarkable. The calvarium is unremarkable in appearance with no fractures identified. IMPRESSION: 1. No evidence of acute infarction, intracranial hemorrhage, or mass-effect seen. Please note that all CT scans at this facility use dose modulation, iterative reconstruction, and/or weight-based dosing when appropriate to reduce radiation dose to as low as reasonably achievable. Dictated by: Alon Telles MD @ 09/03/2020 19:47:46 (Electronically Signed)
--- NOTE | 2020-09-03 19:53 | CT ---
INDICATION: Cervical spine injury from Fall on xarelto TECHNIQUE: CT cervical spine without i.v. contrast. Coronal and sagittal reformats were obtained. COMPARISON: None FINDINGS: Alignment: Unremarkable. Bone: No acute fractures or aggressive bone lesions are identified. Disc: There are degenerative disc disease noted at C5-6 and C6-7. Scattered facet osteoarthritis is noted bilaterally. Soft tissue: The prevertebral soft tissues are unremarkable in appearance. Severe emphysema noted in the apices. IMPRESSION: 1. No acute osseous injuries are identified. Please note that all CT scans at this facility use dose modulation, iterative reconstruction, and/or weight-based dosing when appropriate to reduce radiation dose to as low as reasonably achievable. Dictated by: Alon Telles MD @ 09/03/2020 19:52:07 (Electronically Signed)
[2020-09-03 21:01] VITALS: BP 97/55; PULSE 70
== END 2020-09-03 21:11 | disposition home or self-care (01) ==
LOC: MW.ED 18:52
DX: S00.83XA Contusion of other part of head, initial encounter (principal); F10.120 Alcohol abuse with intoxication, uncomplicated; I48.91 Unspecified atrial fibrillation; Y90.7 Blood alcohol level of 200-239 mg/100 ml; Z79.01 Long term (current) use of anticoagulants; Z20.822 Contact with and (suspected) exposure to COVID-19; Z86.711 Personal history of pulmonary embolism; Z91.040 Latex allergy status; Z91.048 Other nonmedicinal substance allergy status; Z86.718 Personal history of other venous thrombosis and embolism; Z79.899 Other long term (current) drug therapy; Z72.0 Tobacco use; W19.XXXA Unspecified fall, initial encounter
CPT/HCPCS: 36415; 70450; 71045; 72125; 72170; 80053; 80305; 80307; 81003; 82550; 83735; 84443; 84484; 85025; 85610; 93005; 99285; J7030; U0002; 93010; 99284

== ENCOUNTER 2021-03-30 08:29 | Day surgery (SDC) | payer MEDICARE, OTHER ==
--- NOTE | 2021-03-30 09:27 | PCM.PREANE ---
Preanesthetic Assessment - Procedure Proposed Procedure: EGD, Colonoscopy - Anesthesia/Transfusion/Family Hx Anesthesia History: Prior Anesthesia Without Reaction Family History of Anesthesia Reaction: No Transfusion History: No Prior Transfusion(s) - Review of Systems General: No Symptoms Pulmonary: No Symptoms (smokes 1-2 PPD, COPD, ESETR with CPAP, h/o PE) Cardiovascular: No Symptoms (Afib, HLD) Gastrointestinal: No Symptoms Neurological: No Symptoms Other: Reports: None - Physical Assessment NPO Status Date: 03/29/21 NPO Status Time: 21:00 Vital Signs: Last Vital Signs Temp 97.2 F 03/30/21 08:51 Pulse 74 03/30/21 08:51 Resp 16 03/30/21 08:51 BP 123/78 03/30/21 08:51 Pulse Ox 94 L 03/30/21 08:51 Height: 5 ft 3 in Weight: 56.245 kg ASA Class: 3 Mental Status: Alert & Oriented x3 Airway Class: Mallampati = 3 Dentition: Reports: Normal Dentition Thyro-Mental Finger Breadths: 3 Mouth Opening Finger Breadths: 3 Lungs: Clear to Auscultation, Normal Respiratory Effort Cardiovascular: Regular Rate, Regular Rhythm - Allergies Allergies/Adverse Reactions: Allergies Allergy/AdvReac Type Severity Reaction Status Date / Time aloe vera Allergy Rash Verified 03/30/21 08:52 denosumab [From Prolia] Allergy Muscle Verified 03/30/21 08:52 Aches/body aches latex Allergy Rash Verified 03/30/21 08:52 Sulfa (Sulfonamide Allergy Hives Verified 03/30/21 08:52 Antibiotics) - Acknowledgements Anesthesia Type Planned: General Anesthesia Pt an Appropriate Candidate for the Planned Anesthesia: Yes Alternatives and Risks of Anesthesia Discussed w Pt/Guardian: Yes Pt/Guardian Understands and Agrees with Anesthesia Plan: Yes PreAnesthesia Questionnaire HEENT History: Reports: Cataract Other HEENT History: wears glasses Cardiovascular History: Reports: Afib, Blood Clots/VTE/DVT, High Cholesterol, Hypertension, Other (See Below) Other Cardiovascular History: Palpitations Respiratory History: Reports: COPD, PE, Sleep Apnea Other Respiratory History: PE approx 4 years ago, uses CPAP Gastrointestinal History: Reports: None Genitourinary History: Reports: None [employer] History: Reports: Musculoskeletal History: Reports: Arthritis, Fracture, Osteoporosis Other Musculoskeletal History: hx of fx left wrist Neurological History: Reports: None Psychiatric History: Reports: Depression Endocrine/Metabolic History: Reports: None Hematologic History: Reports: Anticoagulation Therapy Immunologic History: Reports: None Oncologic (Cancer) History: Reports: None Dermatologic History: Reports: Psoriasis - Infectious Disease History Infectious Disease History: Reports: None - Past Surgical History Head Surgeries/Procedures: Reports: None HEENT Surgical History: Reports: Cataract Surgery, Eye Surgery, Tonsillectomy Other HEENT Surgeries/Procedures: eye surgery as a child Cardiovascular Surgical History: Reports: None Respiratory Surgical History: Reports: None GI Surgical History: Reports: Hernia, Inguinal Other GI Surgeries/Procedures: rectal-vaginal fistula repair Female Surgical History: Reports: Hysterectomy, Other (See Below) Other Female Surgeries/Procedures: Hysterectomy with Bladder repair Endocrine Surgical History: Reports: None Neurological Surgical History: Reports: None Musculoskeletal Surgical History: Reports: Shoulder Surgery Other Musculoskeletal Surgeries/Procedures:: shoulder manipulation, closed reduction left wrist fx. Oncologic Surgical History: Reports: None Dermatological Surgical History: Reports: None - SUBSTANCE USE Tobacco Use Status *Q: Current Every Day Tobacco User Tobacco Use Within Last Twelve Months: Cigarettes Days Per Week of Alcohol Use: 7 Number of Drinks Per Day: 2 Total Drinks Per Week: 14 Recreational Drug Use History: No - HOME MEDS Home Medications: Home Meds Potassium Chloride [Klor-Con] 10 meq PO BID 10/11/15 [History] Calc/D3/Mag/Zn/John/Talon/Guys [Calcium 600 MG Plus Vit D] 1 tab DAILY 01/16/18 [History] Cholecalciferol (Vitamin D3) [Vitamin D3] 5,000 units PO DAILY 12/23/18 [History] Magnesium 25 mg PO DAILY 12/23/18 [History] Rivaroxaban [Xarelto] 20 mg PO DAILY 12/23/18 [History] Tiotropium Br/Olodaterol HCl [Stiolto Respimat Inhal [place]] 2 inh INH DAILY 12/23/18 [History] Metoprolol Tartrate 25 mg PO DAILY 10/03/19 [History] Rosuvastatin Calcium 10 mg PO BEDTIME 09/03/20 [History] Albuterol Sulfate [Albuterol Sulfate Hfa] 1 - 2 puff INH ASDIRECTED PRN 03/24/21 [History] Ascorbic Acid [Vitamin C] 500 mg PO DAILY 03/24/21 [History] Aspirin [Adult Aspirin Regimen] 81 mg PO DAILY 03/24/21 [History] Ibandronate Sodium 150 mg PO ASDIRECTED 03/24/21 [History] - CURRENT (IN HOUSE) MEDS Current Meds: Current Medications Lactated Ringer's (Ringers, Lactated) 1,000 mls @ 125 mls/hr IV ASDIRECTED FILIBERTO Last Admin: 03/30/21 09:05 Dose: 125 mls/hr Documented by:
[2021-03-30] MEDS ORDERED: Propofol 200 MG/20 ML SDV ONE ×2 (09:57→10:45)
[2021-03-30] MEDS ORDERED: Lidocaine 2% 5 ML SDV ONE (09:57)
[2021-03-30] MEDS ORDERED: fentaNYL 100 MCG/2 ML SDV ONE (09:57)
[2021-03-30] MEDS ORDERED: Lactated Ringers 1,000 ML IV SCH (10:00)
--- NOTE | 2021-03-30 11:10 | PCM.OPNOTE ---
- General Post-Op/Procedure Note Date of Surgery/Procedure: 03/30/21 Operative Procedure(s): EGD with biopsies. Colonoscopy Findings: Gastritis Normal colon dictation number [id number] Pre Op Diagnosis: Blood in stool Post-Op Diagnosis: Gastritis. Normal colon Anesthesia Technique: [facility] [place] Primary Surgeon: Hector Hyman Pathology: Biopsies from EGD Complications: None Condition: Good
[2021-03-30 11:23] VITALS: PULSE 66
--- NOTE | 2021-03-30 11:27 | PCM.POSTAN ---
POST ANESTHESIA ASSESSMENT - MENTAL STATUS Mental Status: Somnolent - VITAL SIGNS Vital Signs: Last Vital Signs Temp 98.1 F 03/30/21 11:12 Pulse 66 03/30/21 11:22 Resp 18 03/30/21 11:22 BP 91/55 L 03/30/21 11:22 Pulse Ox 100 03/30/21 11:22 - RESPIRATORY Respiratory Status: Respiratory Rate WNL, Airway Patent, O2 Saturation Stable - CARDIOVASCULAR CV Status: Pulse Rate WNL, Blood Pressure Stable - GASTROINTESTINAL GI Status: No Symptoms - PAIN Free Text/Narrative:: resting comfortably - POST OP HYDRATION Hydration Status: Adequate & Stable
--- NOTE | 2021-03-30 11:29 | PCM48HPAN ---
Post Anesthesia Note - EVALUATION WITHIN 48HRS OF ANESTHETIC Vital Signs in Normal Range: Yes Patient Participated in Evaluation: Yes Respiratory Function Stable: Yes Airway Patent: Yes Cardiovascular Function Stable: Yes Hydration Status Stable: Yes Pain Control Satisfactory: Yes Nausea and Vomiting Control Satisfactory: Yes Mental Status Recovered: Yes Vital Signs: Last Vital Signs Temp 98.1 F 03/30/21 11:12 Pulse 66 03/30/21 11:22 Resp 18 03/30/21 11:22 BP 91/55 L 03/30/21 11:22 Pulse Ox 100 03/30/21 11:22 - COMMENTS/OBSERVATIONS Free Text/Narrative:: Pt doing well post-op. VSS. No apparent anesthetic complications. Dr. Willie Tsai
[2021-03-30 13:28] VITALS: BP 110/66
--- NOTE | 2021-03-30 15:19 | OR ---
SURGEON: EPI BRIZUELA MD DATE OF PROCEDURE: 03/30/2021 PREOPERATIVE DIAGNOSIS: Blood in her stool. POSTOPERATIVE DIAGNOSES: 1. Gastritis. 2. Normal colonoscopy. 3. Minimally inflamed internal hemorrhoids. PROCEDURES PERFORMED: 1. Colonoscopy. 2. Esophagogastroduodenoscopy with biopsies. PRIMARY SURGEON: Epi Brizuela MD SPECIMENS: Biopsies from the EGD. EXTENT OF THE COLONOSCOPY: To the cecum. EXTENT OF THE EGD: To the duodenum. BOWEL PREP: Excellent LIMITATIONS: None. REASON FOR PROCEDURE: Patient is a pleasant 70-year-old female who says earlier this month she had an episode of bright red blood and clots in her stools. She also was having some loose stools. This lasted about three days and then it resolved. She was on anticoagulation, but this was also stopped. Patient relates having a normal colonoscopy in 2014. Other than this episode, she denies any blood in her stool. She denies any family history of colon cancer. She denies any issues with heartburn or swallowing issues. PROCEDURE IN DETAIL: Physical examination was performed. The major risks and benefits associated with the procedure were explained to the patient in detail. The patient verbalized understanding and agreement of the same. The patient was then connected to the appropriate monitoring devices. EKG, pulse, pulse oximetry, blood pressure, and capnography were monitored throughout the entire procedure. Continuous oxygen and sedation were provided by the anesthesiologist. Patient was placed in left lateral decubitus position. Sedation was began. After adequate sedation was achieved, an upper endoscope was advanced under direct visualization without difficulty in the upper GI tract looking at the anatomy and mucosa of the esophagus, GE junction, stomach, pylorus, and duodenum. Duodenum appeared normal. Scope was brought into the stomach. Both retrograde and antegrade views of the stomach were done. Patient did have some gastritis, more prevalent in the antrum, pylorus area. Did do several biopsies to check for H pylori. Patient did have some residual green food. This was mobile, was irrigated, and there was nothing underneath. Patient's stomach mucosa had a slight mosaic pattern. Did do several random biopsies of the stomach. Scope was brought up to the GE junction. GE junction had a good Z- line. GE junction was about 38 cm from incisor. Scope was brought into the stomach, stomach was deinsufflated. Scope was brought up through the esophagus. Esophagus appeared normal. Scope was completely removed and this part of the procedure was terminated. Scopes and gloves were changed. Now, a rectal exam was done. No rectal masses or polyps felt. Now, a well-lubricated Olympus colonoscope was inserted into the rectum and advanced under direct visualization to the level of the cecum. Cecum was identified by both visual and anatomic landmarks. The cecum was kind of made an acute angle right behind the ileocecal valve. Did get a picture of the cecal cap and appendix orifice. I was unable to intubate the ileocecal valve though. The scope was then slowly withdrawn in a circular fashion looking at the color, texture, anatomy, and integrity of mucosa from the cecum to the anal canal. No polyps or lesions were seen. Retroflexed in the rectum, the patient did have some noninflamed internal hemorrhoids. Scope was completely removed and procedure was terminated. ENDOSCOPIC DIAGNOSES: 1. Gastritis. 2. Normal colonoscopy other than some noninflamed internal hemorrhoids. RECOMMENDATIONS: Patient will follow up with me in clinic. We will go over the pathology of EGD. Did not see any acute source of bleeding. Potentially, it is more gastritis internal hemorrhoids. I do recommend that the patient continues her antacid such as omeprazole. She should also consider cutting back on her alcohol consumption. MARKELL BALLARD /[id number]
== END 2021-03-30 12:00 | disposition home or self-care (01) ==
LOC: MW.SDS 08:29
PROVIDERS: ATTEND Surgery
DX: K92.1 Melena (principal); R19.5 Other fecal abnormalities; K64.8 Other hemorrhoids; K29.50 Unspecified chronic gastritis without bleeding; G47.30 Sleep apnea, unspecified; J44.9 Chronic obstructive pulmonary disease, unspecified; E78.00 Pure hypercholesterolemia, unspecified; I48.91 Unspecified atrial fibrillation; F17.210 Nicotine dependence, cigarettes, uncomplicated; Z98.890 Other specified postprocedural states; Z88.8 Allergy status to other drugs, medicaments and biological substances; Z88.2 Allergy status to sulfonamides; Z91.040 Latex allergy status; Z91.048 Other nonmedicinal substance allergy status; Z79.82 Long term (current) use of aspirin; Z79.899 Other long term (current) drug therapy
CPT/HCPCS: 43239; 45378; J2704; J3010; J7120; 00813; 88305; 88342; 99100

== ENCOUNTER 2023-02-01 17:53 | Emergency (ER) | payer MEDICARE, OTHER ==
[2023-02-01 18:06] LABS: BASOPHILS ABSOLUTE AUTO 0.05 K/uL (0.00-0.20); BASOPHILS PERCENT AUTO 0.9 % (0.0-1.0); EOSINOPHILS ABSOLUTE AUTO 0.23 K/uL (0.00-0.45); EOSINOPHILS PERCENT AUTO 3.9 % (0.0-6.0); HEMATOCRIT 41.4 % (37.0-47.0); HEMOGLOBIN 13.7 g/dL (12.0-16.0); IMMATURE GRAN ABSOLUTE AUTO 0.01 K/uL (0.00-0.05); IMMATURE GRAN PERCENT AUTO 0.2 % (0.0-0.4); LYMPHOCYTES ABSOLUTE AUTO 1.25 K/uL (1.00-4.80); LYMPHOCYTES PERCENT AUTO 21.4 % (24.0-44.0); MEAN CORPUSCULAR HEMOGLOBIN 31.7 pg (28.0-32.0); MEAN CORPUSCULAR HGB CONC 33.1 g/dL (32.0-36.0); MEAN CORPUSCULAR VOLUME 95.8 fL (83.0-99.0); MEAN PLATELET VOLUME 10.1 fL (9.4-12.3); MONOCYTES ABSOLUTE AUTO 0.53 K/uL (0.00-0.80); MONOCYTES PERCENT AUTO 9.1 % (0.0-8.0); NEUTROPHILS ABSOLUTE AUTO 3.76 K/uL (1.80-7.70); NEUTROPHILS PERCENT AUTO 64.5 % (41.0-71.0); PLATELET COUNT,PLT 193 K/uL (150-400); RED BLOOD CELL COUNT 4.32 M/uL (4.10-5.30); WHITE BLOOD CELL COUNT,WBC 5.83 K/uL (3.9-11.3)
[2023-02-01 18:14] LABS: INR 0.98 (0.86-1.11)
[2023-02-01 18:32] LABS: ALBUMIN 3.7 g/dL (3.4-5.0); BILIRUBIN TOTAL 0.4 mg/dL (0.2-1.0); CALCIUM 8.8 mg/dL (8.5-10.1); CARBON DIOXIDE,CO2 24.5 mmol/L (21.0-32.0); CREATININE 0.6 mg/dL (0.6-1.0); EST CRCL DRUG DOSING (CG) 73.19 mL/min; MAGNESIUM 1.9 mg/dL (1.8-2.4); POTASSIUM,K 3.5 mmol/L (3.5-5.1); PROTEIN TOTAL,TP 7.3 g/dL (6.4-8.2)
[2023-02-01 19:06] LABS: APPEARANCE,URINE CLEAR; BILIRUBIN,URINE NEGATIVE (NEGATIVE); COLOR,URINE YELLOW; GLUCOSE,URINE NEGATIVE (NEGATIVE); KETONES,URINE NEGATIVE (NEGATIVE); LEUKOCYTE ESTERASE,URINE NEGATIVE (NEGATIVE); NITRITE,URINE NEGATIVE (NEGATIVE); OCCULT BLOOD,URINE NEGATIVE (NEGATIVE); PH,URINE 5.5 (5.0-8.0); PROTEIN,URINE NEGATIVE (NEGATIVE); UROBILINOGEN,URINE 0.2 EU/dL (<2.0)
[2023-02-01 19:15] LABS: AMPHETAMINES SCREEN, URINE NEGATIVE (CUTOFF=500); BARBITURATE SCREEN,URINE NEGATIVE (CUTOFF=200); BENZODIAZEPINES SCREEN,URINE NEGATIVE (CUTOFF=150); BUPRENORPHINE SCREEN,URINE NEGATIVE (CUTOFF=10); METHADONE SCREEN, URINE NEGATIVE (CUTOFF=200); METHAMPHETAMINES SCREEN, URINE NEGATIVE (CUTOFF=500); OXYCODONE SCREEN,URINE NEGATIVE (CUT0FF=100); PCP SCREEN,URINE NEGATIVE (CUTOFF=25); PROPOXYPHENE SCREEN,URINE NEGATIVE (CUTOFF=300); THC SCREEN,URINE 20 NG/ML NEGATIVE (CUTOFF=50)
[2023-02-01 20:16] VITALS: BP 100/56; PULSE 81
== END 2023-02-01 20:16 | disposition home or self-care (01) ==
LOC: MW.ED 17:53
DX: F10.920 Alcohol use, unspecified with intoxication, uncomplicated (principal); I48.91 Unspecified atrial fibrillation; I10 Essential (primary) hypertension; E78.00 Pure hypercholesterolemia, unspecified; Z86.718 Personal history of other venous thrombosis and embolism; Z79.01 Long term (current) use of anticoagulants; Z88.2 Allergy status to sulfonamides; Z91.040 Latex allergy status; Z91.09 Other allergy status, other than to drugs and biological substances; Z79.82 Long term (current) use of aspirin; Z79.899 Other long term (current) drug therapy
CPT/HCPCS: 36415; 70450; 70450-26; 71045; 71045-26; 72125; 72125-26; 72170; 72170-26; 73030-26-RT; 73030-RT; 80053; 80305-QW; 80307; 81003; 83735; 84484; 85025; 85610; 85730; 93005; 93010; 99283; 99285

== ENCOUNTER 2024-05-13 08:19 | Day surgery (SDC) | payer MEDICARE, OTHER ==
[~2024-05-13 08:19] MED LIST: Sodium Chloride 0.9% 10 ML Syringe FLUSH PRN; Sodium Chloride 0.9% 2.5 ML Syringe FLUSH PRN; Sodium Chloride 0.9% 20 ML SDV IV PRN
[2024-05-13] MEDS ORDERED: Lidocaine 2% 5 ML SDV ONE (08:27)
[2024-05-13] MEDS ORDERED: Propofol 200 MG/20 ML SDV ONE (08:27)
[2024-05-13] MEDS: Lactated Ringers 1,000 ML IV SCH (08:40)
[2024-05-13 10:25] VITALS: BP 118/71; PULSE 64
== END 2024-05-13 10:08 | disposition home or self-care (01) ==
LOC: MW.SDS 08:19
PROVIDERS: ATTEND Surgery
DX: Z12.11 Encounter for screening for malignant neoplasm of colon (principal); R19.5 Other fecal abnormalities; J44.9 Chronic obstructive pulmonary disease, unspecified; I48.91 Unspecified atrial fibrillation; I48.92 Unspecified atrial flutter; F17.210 Nicotine dependence, cigarettes, uncomplicated; Z79.01 Long term (current) use of anticoagulants; Z79.899 Other long term (current) drug therapy; Z88.2 Allergy status to sulfonamides; Z91.040 Latex allergy status
CPT/HCPCS: 45378; J2704; J7120; 00811; 99100; J3490

== ENCOUNTER 2024-08-29 14:37 | Emergency (ER) | payer MEDICARE, OTHER ==
[2024-08-29] MEDS ORDERED: Sodium Chloride 0.9% 10 ML Syringe FLUSH PRN (14:40)
[2024-08-29] MEDS ORDERED: Sodium Chloride 0.9% 2.5 ML Syringe FLUSH PRN (14:40)
[2024-08-29 14:47] LABS: BASOPHILS ABSOLUTE AUTO 0.04 K/uL (0.00-0.20); BASOPHILS PERCENT AUTO 0.5 % (0.0-1.0); EOSINOPHILS ABSOLUTE AUTO 0.11 K/uL (0.00-0.45); EOSINOPHILS PERCENT AUTO 1.3 % (0.0-6.0); HEMATOCRIT 36.8 % (37.0-47.0); HEMOGLOBIN 12.4 g/dL (12.0-16.0); IMMATURE GRAN ABSOLUTE AUTO 0.03 K/uL (0.00-0.05); IMMATURE GRAN PERCENT AUTO 0.4 % (0.0-0.4); LYMPHOCYTES ABSOLUTE AUTO 0.85 K/uL (1.00-4.80); MEAN CORPUSCULAR HGB CONC 33.7 g/dL (32.0-36.0); MEAN CORPUSCULAR VOLUME 97.9 fL (83.0-99.0); MEAN PLATELET VOLUME 10.5 fL (9.4-12.3); MONOCYTES ABSOLUTE AUTO 0.54 K/uL (0.00-0.80); MONOCYTES PERCENT AUTO 6.4 % (0.0-8.0); NEUTROPHILS ABSOLUTE AUTO 6.89 K/uL (1.80-7.70); NEUTROPHILS PERCENT AUTO 81.4 % (41.0-71.0); PLATELET COUNT,PLT 202 K/uL (150-400); RED BLOOD CELL COUNT 3.76 M/uL (4.10-5.30); WHITE BLOOD CELL COUNT,WBC 8.46 K/uL (3.9-11.3)
[2024-08-29] MEDS ORDERED: Factor IX Complex Human 500 UNIT VIAL IV ONE (15:05)
[2024-08-29 15:17] LABS: CALCIUM 8.9 mg/dL (8.5-10.1); CARBON DIOXIDE,CO2 25.6 mmol/L (21.0-32.0); CREATININE 0.8 mg/dL (0.6-1.0); EST CRCL DRUG DOSING (CG) 51.81 mL/min
[2024-08-29 15:39] LABS: INR 1.02 (0.86-1.11); PTT,PARTIAL THROMBOPLSTIN TIME 26.2 SEC (23.9-30.7)
[2024-08-29] MEDS: Factor IX Complex Human 1,000 UNIT VIAL IV ONE (15:51)
[2024-08-29] MEDS: Diphtheria,Pertussis(Acell),Tetanus Vaccine 0.5 ML Syringe IM ONE (15:52)
[2024-08-29] MEDS: Lidocaine/Epineph/Tetracaine 3 ML Syringe TOP ONE (15:58)
[2024-08-29 16:04] VITALS: BP 107/65; PULSE 85
[2024-08-29 16:09] LABS: BILIRUBIN,URINE NEGATIVE (NEGATIVE); COLOR,URINE YELLOW; GLUCOSE,URINE NEGATIVE (NEGATIVE); KETONES,URINE NEGATIVE (NEGATIVE); LEUKOCYTE ESTERASE,URINE NEGATIVE (NEGATIVE); NITRITE,URINE POSITIVE (NEGATIVE); OCCULT BLOOD,URINE LARGE (NEGATIVE); PH,URINE 5.5 (5.0-8.0); PROTEIN,URINE NEGATIVE (NEGATIVE); UROBILINOGEN,URINE 0.2 EU/dL (<2.0)
[2024-08-29 16:14] LABS: APPEARANCE,URINE HAZY
[2024-08-29] MEDS: Nicotine 14 MG/24 Hr Patch TRDERM STA (16:16)
[2024-08-29 16:18] LABS: BACTERIA,URINE 4+ (NEGATIVE); EPITHELIAL CELLS,URINE OCCASIONAL (NONE-FEW); RBC,URINE 0-2 (0-2/HPF)
[2024-08-29] MEDS: cefTRIAXone 1 GM in Water For Injection, Sterile 10 ML IVPUSH ONE (16:54)
== END 2024-08-29 16:57 ==
LOC: MW.ED 14:37
DX: S06.6XAA Traumatic subarachnoid hemorrhage with loss of consciousness status unknown, initial encounter (principal); S01.81XA Laceration without foreign body of other part of head, initial encounter; J44.9 Chronic obstructive pulmonary disease, unspecified; I10 Essential (primary) hypertension; E78.00 Pure hypercholesterolemia, unspecified; Z79.899 Other long term (current) drug therapy; Z79.01 Long term (current) use of anticoagulants; Z79.82 Long term (current) use of aspirin; Z91.048 Other nonmedicinal substance allergy status; Z91.040 Latex allergy status; Z88.2 Allergy status to sulfonamides; Z88.8 Allergy status to other drugs, medicaments and biological substances; W18.30XA Fall on same level, unspecified, initial encounter; Z23 Encounter for immunization
CPT/HCPCS: 12011; 36415; 51702; 70450; 70486; 71045; 72125; 72170; 80048; 81001; 82550; 84484; 85025; 85610; 85730; 90471; 90715; 93005; 96374; 96375; 99285; A9270; J0696; J7168; 93010